=== PATIENT | male | born 1960 | race Caucasian/White ===

== ENCOUNTER 2022-12-03 08:49 | Outpatient (OUT) | payer OTHER, SELFPAY ==
[2022-12-02 08:03] LABS: Basophils Absolute Auto 0.1 10^3/uL (0.0-0.1); Eosinophils Absolute Auto 0.1 10^3/uL (0.0-0.7); Eosinophils Percent Auto 1.6 % (0.9-7.0); Hematocrit 48.2 % (42.0-54.0); Hemoglobin 15.9 g/dL (14.0-18.0); Immature Granulocytes Abs Auto 0.05 10^3/uL (0.00-0.03); Immature Granulocytes Pct Auto 0.7 % (0.0-0.5); Lymphocytes Percent Auto 14.8 % (20.5-60.0); Mean Corpuscular Hemoglobin 29.8 pg (25.9-34.0); Mean Corpuscular Volume 90.4 fL (80.0-94.0); Mean Platelet Volume 10.8 fL (9.5-13.5); Monocytes Absolute Auto 0.5 10^3/uL (0.3-0.8); Monocytes Percent Auto 7.3 % (1.7-12.0); Neutrophils Absolute Auto 5.2 10^3/uL (1.4-6.5); Neutrophils Percent Auto 74.6 % (43.0-75.0); Platelet Count 227 10^3/uL (150-450); Red Blood Count 5.33 10^6/uL (4.70-6.10); Red Cell Distribution Width 14.7 % (11.0-15.0)
[2022-12-02 08:39] LABS: Alanine Aminotransferase 26 U/L (16-63); Albumin Globulin Ratio 1.2; Albumin Level 3.7 g/dL (3.4-5.0); Alkaline Phosphatase 90 U/L (46-116); Anion Gap 12.5; Aspartate Amino Transferase 11 U/L (15-37); BUN Creatinine Ratio 20.8; Bilirubin Total 0.6 mg/dL (0.2-1.0); Calcium 8.6 mg/dL (8.5-10.1); Carbon Dioxide 27.9 mmol/L (21.0-32.0); Chloride 105 mmol/L (98-107); Chol HDL Ratio 5.5; Cholesterol 203 mg/dL (<=200); Estimated GFR (African America >60 (>=60); Estimated GFR (Non-African Ame >60 (>=60); Glucose 110 mg/dL (74-106); HDL Cholesterol 37 mg/dL (40-60); Potassium 4.4 mmol/L (3.5-5.1); Sodium 141 mmol/L (136-145); Total Protein 6.7 g/dL (6.4-8.2); Triglycerides 81 mg/dL (<=150); VLDL CHOLESTEROL 16.2 mg/dL
[2022-12-02 09:10] LABS: Prostate Specific Antigen Scrn 3.07 ng/mL (<=4.00)
== END 2022-12-03 08:50 | disposition home or self-care (01) ==
LOC: LAB 08:49
PROVIDERS: PCP Internal Medicine; Visit Provider Internal Medicine
DX: Z00.00 Encounter for general adult medical examination without abnormal findings (principal); Z12.5 Encounter for screening for malignant neoplasm of prostate
CPT/HCPCS: 36415; 80053; 80061; 85025; G0103

== ENCOUNTER 2022-12-17 15:11 | Outpatient (OUT) | payer OTHER, SELFPAY ==
--- NOTE | 2022-12-17 | ECG_ITS ---
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
== END 2022-12-17 15:12 | disposition home or self-care (01) ==
LOC: CARD 15:12
PROVIDERS: PCP Internal Medicine; Visit Provider Internal Medicine
DX: R00.2 Palpitations (principal)
CPT/HCPCS: 93005

== ENCOUNTER 2022-12-22 14:04 | Outpatient (OUT) | payer OTHER, SELFPAY ==
--- NOTE | 2022-12-22 14:51 | CA_ITS ---
Patient Name GEORGE CASTILLO MR# Age Sex Date Time [id number] 62 M 12/22/2022 14:16 At the Request Of DR Yvon Hall D.O. ECHOCARDIOGRAM REPORT PROCEDURE: CA ECHO DOPPLER COMPLETE INDICATIONS: Persistent atrial fibrillation COMPARISON: None. DESCRIPTION: COMPLETE ECHOCARDIOGRAM Real-time transthoracic echocardiography with 2D, M-mode, spectral and color flow Doppler performed. QUALITY: Technical quality was good. LEFT VENTRICLE: Normal chamber size. Mild concentric left ventricular hypertrophy. LV EF: Global left ventricular systolic function is normal. Calculated left ventricular ejection fraction is 61% DIASTOLIC: Not adequately assessed due to heart rhythm. ATRIAL SEPTUM: Inadequately seen. LEFT ATRIUM: Severe dilatation. RIGHT ATRIUM: Moderate dilatation. RIGHT VENTRICLE: Normal chamber size. Normal right ventricular systolic function. TRICUSPID VALVE: Normal mobility and thickness. No stenosis with mild regurgitation. No evidence of pulmonary hypertension. RVSP 31mmHg MITRAL VALVE: Normal mobility and thickness. No evidence of mitral valve stenosis. There is no mitral annular calcification. Mild mitral regurgitation. AORTIC VALVE: Normal trileaflet appearance. No visible sclerosis. Normal leaflet mobility. No evidence of aortic valve stenosis. Trivial aortic regurgitation. AORTIC ROOT: Mildly dilated. Measuring 4.0cm PULMONIC VALVE: Normal thickness and mobility. No stenosis. No regurgitation. PERICARDIUM: No evidence of pericardial effusion. IVC: Collapses with inspirations. Normal size. CONCLUSION: 1. Global left ventricular systolic function is normal; visually estimated ejection fraction is 60 to 65% 2. The right ventricle is normal in size and systolic function 3. Mildly increased left ventricular wall thickness 4. Biatrial enlargement 5. Mild tricuspid regurgitation 6. Mild mitral regurgitation 7. Aortic root is mildly dilated Adult Echocardiography Procedure Report Left Ventricle LVEDD (3.7 - 5.6 cm): 4.55 cm LVESD (2.2 - 4.0 cm): 3.09 cm LVIVS thickness (0.6 - 1.2 cm): 1.19 cm LVPW thickness (0.5 - 1.0 cm): 1.02 cm e': 0.14 m/s E - e': 7.07 LVOT Max Gradient: 1.80 mm[Hg] LVOT Area (cm2): 0.67 m/s Peak Velocity (LVOT): 0.67 m/s Mean Velocity (LVOT): 0.40 m/s LVOT Diameter 2.21 cm Left Ventricular Ejection Fraction: 61.25 % Left Atrium LA Volume Index (2D A2C): 53.74 ml/m2 Left Atrium Systolic Dimension: 4.00 cm Mitral Valve Mitral Valve E-Wave Peak Velocity: 1.00 m/s Right Ventricle RV Internal Diastolic Dimension: 3.63 cm Aorta AO Root Diam: 4.02 cm Ascending Ao Diam: 3.56 cm Aortic Valve AoV Area (Peak Gustavo): 2.45 cm2, 2.27 cm2 AoV Area (VTI): 2.11 cm2, 2.03 cm2 Peak Velocity(Antegrade Flow): 1.12 m/s, 0.97 m/s Peak Gradient(Antegrade Flow): 5.06 mm[Hg], 3.74 mm[Hg] Mean Velocity(Antegrade Flow): 0.72 m/s, 0.69 m/s Mean Gradient(Antegrade Flow): 2.40 mm[Hg], 2.11 mm[Hg] Velocity Time Integral: 21.76 cm, 19.96 cm Tricuspid Valve Peak Velocity (Regurgitant Flow): 2.57 m/s, 2.03 m/s, 2.65 m/s Pulmonic Valve Peak Velocity: 0.79 m/s Peak Gradient: 2.38 mm[Hg], 2.62 mm[Hg] Right Atrium Right Atrium Systolic Pressure: 75.82 ml, 75.82 ml Dictated by: Gifty Elise M.D. on 12/23/2022 at 12:33 Approved by: Gifty Elise M.D. on 12/23/2022 at 12:36
== END 2022-12-22 14:05 | disposition home or self-care (01) ==
LOC: CARD 14:05
PROVIDERS: PCP Internal Medicine; Visit Provider Internal Medicine
DX: I48.19 Other persistent atrial fibrillation (principal)
CPT/HCPCS: 93306

== ENCOUNTER 2023-01-11 16:54 | Outpatient (OUT) | payer OTHER, SELFPAY | END 2023-01-11 16:55 | disposition home or self-care (01) | LOC: SLEEP 16:55 | PROVIDERS: PCP Internal Medicine; Visit Provider Internal Medicine | DX: G47.33 Obstructive sleep apnea (adult) (pediatric) (principal) | CPT/HCPCS: 95806 ==

== ENCOUNTER 2023-01-28 11:12 | Outpatient (OUT) | payer OTHER, SELFPAY ==
--- NOTE | 2023-01-28 10:45 | NM_ITS ---
Patient Name: GEORGE CASTILLO MR#: [id number] : 1960 Exam Date: 01/28/2023 Ordering Doctor: DR Yvon Hall D.O. RADIOLOGY REPORT PROCEDURE: NM LILLIE PERF SPECT REST STR COMPARISON: None. INDICATIONS: ATRIAL FIBRILLATION TECHNIQUE: Exam Description: Stress/Rest one day protocol gated SPECT Rest Imagin.5 mCi Tc-99m Cardiolite IV on 01/28/2023 Stress Imaging 30.8 mCi Tc-99m Cardiolite IV on 01/28/2023 Exercise Protocol: 0.4 mg Lexiscan given IV Heart Rate (bpm): Rest: 75 Max: 123 PMHR: 76 Blood Pressure: Rest: 118/84 Max: 126/88 Symptoms: Rest and peak stress ECG findings were normal and the exercise portion of the study was normal per attending physician Dr. Armando Hall . For more details please see separate cardiac stress test report. FINDINGS: QUALITY OF STUDY: Good. PERFUSION DEFECT: None. LOCATION: N/A SIZE: N/A. SEVERITY: N/A. TYPE: N/A. WALL MOTION: Normal. LV SIZE: Normal. 108 mL. TID / TCD: None; 0.9 LVEF: Normal. Calculated EF 50%. SUMMARY: Myocardial perfusion imaging study is NORMAL. CONCLUSION: 1. No reversible ischemia 2. Normal exercise test Dictated by: Bal Mckeon MD on 01/29/2023 at 08:06 Approved by: Bal Mckeon MD on 01/29/2023 at 08:07
--- NOTE | 2023-01-28 13:29 | P.STRESS_ITS ---
Stress Test Stress Test Requesting physician: Yvon Hall Procedure: Lexiscan stress test General Information: Reason for Stress Test: [The stress test is being ordered to evaluate a patient with new-onset atrial fibrillation for coronary artery disease.] Cardiac History and Risk Factors: [This is a 62-year-old patient with no personal history of coronary disease with a recent diagnosis of atrial fibrillation. Primary risk factors include hyperlipidemia] Resting 12 - Lead Electrocardiogram: Atrial fibrillation with a ventricular response of 80 bpm. The QRS interval 0.08 with the QT interval is 0.36 all within normal limits. There are small nondiagnostic Q waves inferiorly without chamber enlargement or ST-T wave changes. Stress Test: Protocol: [Lexiscan protocol] Exercise Capacity: [Not applicable] Blood Pressure Response: The patient's heart rate and blood pressure both increased following infusion] Rhythm: [Patient remained in atrial fibrillation without ectopy during infusion] ST - Response: [There was no ST-T wave changes during infusion] Patient Response: [Patient denied chest pain or shortness of breath during infus ion] Interpretation: There was no objective evidence of myocardial ischemia during infusion. Cardiolite was injected with images in interpretation pending
[2023-01-28] MEDS: REGADENOSON 0.4 MG/5 ML SYRINGE IV (13:43)
== END 2023-01-28 11:13 | disposition home or self-care (01) ==
LOC: NM 11:13
PROVIDERS: PCP Internal Medicine; Visit Provider Internal Medicine
DX: I48.91 Unspecified atrial fibrillation (principal)
CPT/HCPCS: 78452; A9500; J2785

== ENCOUNTER 2023-02-11 20:55 | Outpatient (OUT) | payer OTHER, SELFPAY ==
--- OUTSIDE RECORDS SUMMARY | 2023-02-11 20:57 | XMS_ITS | CCD ---
Author Name Unknown Address [address] [place] [address] Organization [facility] Care Team Providers Care [employer] Captain Name Role Phone RAFAEL, DR RODRIGUEZ Attending Unavailable RAFAEL, DR RODRIGUEZ Consulting Unavailable RAFAEL, DR RODRIGUEZ Primary Care Unavailable RAFAEL, DR RODRIGUEZ Admitting Unavailable PRAMOD, DR DEMETRIO [place] Consulting Unavailable RAFAEL, DR RODRIGUEZ Consulting Unavailable RAFAEL, DR RODRIGUEZ Primary Care Unavailable RAFAEL, DR RODRIGUEZ Admitting Unavailable RAFAEL, DR RODRIGUEZ Attending Unavailable RAFAEL, DR RODRIGUEZ Consulting Unavailable RAFAEL, DR RODRIGUEZ Primary Care Unavailable RAFAEL, DR RODRIGUEZ Admitting Unavailable RAFAEL, DR RODRIGUEZ Attending Unavailable PRAMOD, DR DEMETRIO [place] Consulting Unavailable RAFAEL, DR RODRIGUEZ Primary Care Unavailable RAFAEL, DR RODRIGUEZ Admitting Unavailable RAFAEL, DR RODRIGUEZ Attending Unavailable Rafael, Yvon Unavailable Medications Current Medications Medication Drug Class(es) Dates Sig (Normalized) Sig (Original) apixaban 5 mg oral tablet (4 sources) Factor Xa Inhibitor take 1 tablet by mouth every twelve hours Eliquis 5 MG 1 tablet Orally Twice a day Active atorvastatin 40 mg oral tablet (4 sources) HMG-CoA Reductase Inhibitor Start: 12-27-2022 take 1 tablet by mouth every twenty-four hours Atorvastatin Calcium 40 MG 1 tablet Orally Once a day for 30 days Dec, Active paxlovid (300/100) 20 x 150 mg & 10 x 100mg tablet therapy pack (1 source) Start: 01-01-2023 Paxlovid (300/100) 20 x 150 MG & 10 x 100MG as directed Orally bid for 5 days Dec, Active {20 (nirmatrelvir 150 MG Oral Tablet) / 10 (ritonavir 100 MG Oral Tablet) } Pack [Paxlovid 5-Day] (2 sources) Start: 01-01-2023 Paxlovid (300/100) 20 x 150 MG & 10 x 100MG as directed Orally bid for 5 days Dec, Active Completed/Discontinued Medications Medication Drug Class(es) Dates Sig (Normalized) Sig (Original) citric acid 75 mg/ml / magnesium oxide 21.9 mg/ml / picosulfate sodium 0.0625 mg/ml oral solution (10 sources) Calculi Dissolution Agent, Anti-coagulant Start: 11-15-2018 take 160 mL by mouth in the evening, then take 160 mL by mouth twice daily in the evening Clenpiq 10-3.5-12 MG-GM -GM/160ML 160 ML AT 3:00 PM AND 160 ML AT 9:00 PM Orally TWICE A DAY for 1 days PLEASE CHECK ALLERGIES Nov, Not-Taking/PRN etodolac 400 mg oral tablet (10 sources) Nonsteroidal Anti-inflammatory Drug Start: 01-22-2022 take 1 tablet by mouth twice daily as needed Etodolac 400mg etodolac 400mg, 1 (one) tablet tablet two times daily # 60, 01/22/2022, No Refill. Active oral two times daily for 0 *Pick strength-form from [employer] for [employer]* Jan, Not-Taking/PRN triamcinolone acetonide 40 mg/ml injectable suspension (10 sources) Corticosteroid Start: 09-18-2022 Kenalog-40 Sep, 60 mg Problems Active Problems Problem Classification Problem Date Documented Date Episodic/Chronic Biliary tract disease (2 sources) Cholelithiasis AND cholecystitis without obstruction; Translations: [Calculus of gallbladder with chronic cholecystitis without obstruction] Episodic Cardiac dysrhythmias (7 sources) Persistent atrial fibrillation; Translations: [Other persistent atrial fibrillation] Chronic Cardiac dysrhythmias (11 sources) Palpitations; Translations: [Palpitations] Episodic Diabetes mellitus without complication (10 sources) Hyperglycemia; Translations: [Hyperglycemia, unspecified] Episodic Disorders of lipid metabolism (13 sources) Pure hypercholesterolemia; Translations: [Pure hypercholesterolemia, unspecified] Chronic Hyperplasia of prostate (13 sources) Benign prostatic hypertrophy without outflow obstruction; Translations: [Hypertrophy (benign) of prostate without urinary obstruction and other lower urinary tract symptoms [LUTS]] Chronic Inflammatory conditions of male genital organs (2 sources) Balanitis; Translations: [Balanitis] Onset: 07-25-2014 Chronic Inflammatory conditions of male genital organs (2 sources) Orchitis and epididymitis; Translations: [Epididymo-orchitis] Episodic Miscellaneous mental health disorders (2 sources) Psychosexual dysfunction associated with inhibited sexual excitement; Translations: [Psychosexual dysfunction with inhibited sexual excitement] Onset: 03-11-2016 Chronic Nonspecific chest pain (2 sources) Chest pain; Translations: [Chest pain, unspecified] Episodic Osteoarthritis (2 sources) Localized, primary osteoarthritis of the pelvic region and thigh; Translations: [Unilateral primary osteoarthritis, right hip] Chronic Other connective tissue disease (10 sources) Cramp in lower leg associated with rest; Translations: [Sleep related leg cramps] Chronic Other connective tissue disease (1 source) Sleep related leg cramps Chronic Other connective tissue disease (2 sources) Other symptoms and signs involving the nervous system Episodic Other male genital disorders (2 sources) Impotence of organic origin; Translations: [Impotence of organic origin] Chronic Other non-traumatic joint disorders (2 sources) Pain in right hip joint; Translations: [Pain in right hip] Episodic Other non-traumatic joint disorders (8 sources) Arthralgia of the pelvic region and thigh; Translations: [Pain in right hip] Episodic Other nutritional; endocrine; and metabolic disorders (4 sources) Obese class I; Translations: [Body mass index 33.0-33.9, adult] Onset: 03-11-2016 Chronic Other nutritional; endocrine; and metabolic disorders (2 sources) Simple obesity ; Translations: [Other obesity due to excess calories] Onset: 03-11-2016 Chronic Other nutritional; endocrine; and metabolic disorders (2 sources) Obesity; Translations: [Obesity, unspecified] Chronic Other nutritional; endocrine; and metabolic disorders (4 sources) Body mass index 30+ - obesity; Translations: [Body mass index (BMI) 31.0-31.9, adult] Chronic Other nutritional; endocrine; and metabolic disorders (4 sources) Obesity caused by energy imbalance; Translations: [Other obesity due to excess calories] Chronic Other nutritional; endocrine; and metabolic disorders (2 sources) Other obesity due to excess calories Chronic Other nutritional; endocrine; and metabolic disorders (2 sources) Body mass index (BMI) 31.0-31.9, adult Chronic Other screening for suspected conditions (not mental disorders or infectious disease) (4 sources) Encounter for screening for malignant neoplasm of prostate; Translations: [Encounter for screening for diseases of the blood and blood-forming organs and certain disorders involving the immune mechanism] Onset: 10-11-2018 Episodic Other upper respiratory disease (2 sources) Allergic rhinitis; Translations: [Allergic rhinitis, unspecified] Chronic Other upper respiratory disease (2 sources) Allergic rhinitis due to pollen; Translations: [Allergic rhinitis due to pollen] Chronic Other upper respiratory disease (12 sources) Seasonal allergic rhinitis; Translations: [Other seasonal allergic rhinitis] Onset: 10-13-2016 Chronic Other upper respiratory disease (1 source) Other seasonal allergic rhinitis Chronic Other upper respiratory infections (4 sources) Acute maxillary sinusitis; Translations: [Acute maxillary sinusitis, unspecified] Onset: 05-13-2016 Episodic Residual codes; unclassified (2 sources) Obstructive sleep apnea syndrome; Translations: [Obstructive sleep apnea (adult) (pediatric)] Chronic Residual codes; unclassified (1 source) Obstructive sleep apnea (adult) (pediatric) Chronic Spondylosis; intervertebral disc disorders; other back problems (17 sources) Spondylosis without myelopathy or radiculopathy, lumbar region; Translations: [Lumbosacral spondylosis without myelopathy] Onset: 04-04-2018 Chronic Sprains and strains (14 sources) Injury of superior glenoid labrum of shoulder joint; Translations: [Superior glenoid labrum lesion of left shoulder, subsequent encounter] Onset: 03-11-2016 Episodic Superficial injury; contusion (8 sources) Contusion of right hip, subsequent encounter; Translations: [Contusion of right shoulder] Onset: 01-06-2022 Resolved: 01-19-2020 Episodic Urinary tract infections (2 sources) Urethritis; Translations: [Other urethritis] Episodic Past or Other Problems Problem Classification Problem Date Documented Da te Episodic/Chronic Bacterial infection; unspecified site (2 sources) Bacterial infectious disease; Translations: [Bacterial infection, unspecified, in conditions classified elsewhere and of unspecified site] Onset: 05-13-2016 Episodic Blindness and vision defects (2 sources) Transient visual loss; Translations: [Transient visual loss, unspecified eye] Onset: 07-25-2014 Episodic Conditions associated with dizziness or vertigo (2 sources) Benign paroxysmal positional vertigo; Translations: [Benign paroxysmal vertigo, unspecified ear] Onset: 11-06-2014 Episodic Malaise and fatigue (2 sources) Malaise and fatigue; Translations: [Other malaise and fatigue] Onset: 10-11-2018 Episodic Other connective tissue disease (2 sources) Nontraumatic rupture of rotator cuff of left shoulder; Translations: [Unspecified rotator cuff tear or rupture of left shoulder, not specified as traumatic] Onset: 03-11-2016 Episodic Other connective tissue disease (2 sources) Disorder of synovium; Translations: [Unspecified disorder of synovium, tendon, and bursa] Onset: 03-11-2016 Episodic Other non-traumatic joint disorders (4 sources) Shoulder joint pain; Translations: [Pain in left shoulder] Onset: 03-11-2016 Episodic Unclassified (5 sources) Other persistent atrial fibrillation Viral infection (3 sources) Disease caused by 2019-nCoV; Translations: [COVID-19] Results Test Name Value Interpretation Reference Range Facility MRI Lumbar Spine w/oon 03-10 MRI Lumbar Spine w/o HISTORY: Low back pain radiating to right leg. TECHNIQUE: Routine lumbosacral spine MR protocol without gadolinium. Contrast: None. COMPARISON: None. RESULT: Counting reference: Lumbosacral junction. For the purposes of this report, L5-S1 is considered the last well-formed disc space. Alignment: Grade 1 anterolisthesis of L5 on S1 measuring around 3 mm. Bone marrow signal/fracture: No evidence for recent fracture. No marrow replacing process. Areas of endplate degenerative signal. Schmorl's node superior endplate of L2. Conus: The conus is within normal limits of signal intensity and morphology. Paraspinal soft tissues: Paraspinal soft tissues are unremarkable. Lower thoracic spine: Visualized lower thoracic canal and foramina are without significant narrowing. T12-L1: No significant canal or foraminal narrowing. L1-L2: Tiny disc bulge. No significant canal or foraminal narrowing. L2-L3: Tiny disc bulge. Endplate osteophytes. Facet degenerative changes. No significant canal or foraminal narrowing. L3-L4: Tiny disc bulge. Endplate osteophytes. Facet degenerative changes. Ligamentous hypertrophy. Mild bilateral foraminal narrowing without sniffing canal narrowing. L4-L5: Broad-based disc bulge. Endplate osteophytes. Facet degenerative changes. Ligamentous hypertrophy. Mild bilateral foraminal narrowing without significant canal narrowing. L5-S1: Anterolisthesis with disc uncovering. No significant canal or foraminal narrowing. Sacrum and iliac wings: The visualized sacrum and iliac wings are within normal limits. The presacral soft tissues are normal in appearance. IMPRESSION: Degenerative changes lumbar spine as discussed. Report reported and signed by Farooq Johnson on 03/11/2022 1208 Normal [facility] [employer] XR LSPINE W_OBLS AND FLEX_EX Ton 01-27-2022 XR LSPINE W_OBLS AND FLEX_EXT EXAMINATION: XR LSPINE W_OBLS AND FLEX_EXT HISTORY: Spondylosis without myelopathy COMPARISON: No relevant comparison available. FINDINGS: BONES: Normal alignment on neutral projection with no acute fracture or spondylolisthesis. Mild to moderate diffuse degenerative spondylosis and facet osteoarthropathy DISC SPACES: Mild multilevel disc space narrowing PARASPINOUS: Negative. No paraspinous abnormality is seen. OTHER: No transient spondylolisthesis with flexion or extension IMPRESSION: Mild to moderate degenerative changes with no dynamic instability Electronically authenticated by: DEMETRIO BENAVIDEZ Date: 2022-01-27 07:10 Normal [facility] CBC AUTO DIFFon 12-01-2021 BASO # 0.0 103/ul Normal 0.0-0.1 [facility] Comment on above: Performed By: #### C BC #### [facility] [address] [address] [address] Derrek Miramontes Basophils/100 WBC (Bld) 0.7 % Normal 0.2-2.0 [facility] Comment on above: Performed By: #### C BC #### [facility] [address] [address] [address] Derrek Miramontes EO # 0.1 103/ul Normal 0.0-0.7 [facility] Comment on above: Performed By: #### C BC #### [facility] [address] [address] [address] Derrek Miramontes Eosinophils/100 WBC (Bld) 2.0 % Normal 0.9-7.0 [facility] Comment on above: Performed By: #### C BC #### [facility] [address] [place] [address] Dr. Derrek Miramontes Erythrocyte distribution width (RBC) [Ratio] 14.2 % Normal 11.0-15.0 [facility] Comment on above: Performed By: #### C BC #### [facility] [address] [address] [address] Derrek Miramontes Hematocrit (Bld) [Volume fraction] 46.7 % Normal 42.0-54.0 [facility] Comment on above: Performed By: #### C BC #### [facility] [address] [address] [address] Derrek Miramontes Hemoglobin (Bld) [Mass/Vol] 15.3 g/dL Normal 14.0-18.0 [facility] Comment on above: Performed By: #### C BC #### [facility] [address] [place] [address] Dr. Derrek Miramontes IG # 0.07 10e3/ul Critically high 0.00-0.03 [facility] Comment on above: Performed By: #### C BC #### [facility] [address] [place] [address] Dr. Derrek Miramontes IG % 1.2 % Critically high 0.0-0.5 [facility] Comment on above: Performed By: #### C BC #### [facility] [address] [place] [address] Dr. Derrek Miramontes LYMPH # 1.0 103/ul Critically low 1.2-3.8 [facility] Comment on above: Performed By: #### C BC #### [facility] [address] [place] [address] Dr. Derrek Miramontes Lymphocytes/100 WBC (Bld) 16.3 % Critically low 20.5-60.0 [facility] Comment on above: Performed By: #### C BC #### [facility] [address] [place] [address] Dr. Derrek Miramontes MANUAL DIFF REQ NO Normal [facility] Comment on above: Performed By: #### C BC #### [facility] [address] [place] [address] Dr. Derrek Miramontes MCH (RBC) [Entitic mass] 29.5 pg Normal 25.9-34.0 [facility] Comment on above: Performed By: #### C BC #### [facility] [address] [place] [address] Dr. Derrek Miramontes MCHC (RBC) [Mass/Vol] 32.8 g/dL Normal 29.9-35.2 [facility] Comment on above: Performed By: #### C BC #### [facility] [address] [address] [address] Derrek Miramontes MCV (RBC) [Entitic vol] 90.2 fL Normal 80.0-94.0 [facility] Comment on above: Performed By: #### C BC #### [facility] [address] [place] [address] Dr. Derrek Miramontes MONO # 0.4 103/ul Normal 0.3-0.8 [facility] Comment on above: Performed By: #### C BC #### [facility] [address] [place] [address] Dr. Derrek Miramontes Monocytes/100 WBC (Bld) 7.1 % Normal 1.7-12.0 [facility] Comment on above: Performed By: #### C BC #### [facility] [address] [place] [address] Dr. Derrek Miramontes NEUT # 4.3 103/ul Normal 1.4-6.5 [facility] Comment on above: Performed By: #### C BC #### [facility] [address] [place] [address] Dr. Derrek Miramontes Neutrophils/100 WBC (Bld) 72.7 % Normal 43.0-75.0 [facility] Comment on above: Performed By: #### C BC #### [facility] [address] [place] [address] Dr. Derrek Miramontes Platelet mean volume (Bld) [Entitic vol] 10.0 fL Normal 9.5-13.5 [facility] Comment on above: Performed By: #### C BC #### [facility] [address] [place] [address] Dr. Derrek Miramontes PLT 186 103/ul Normal 150-450 [facility] Comment on above: Performed By: #### C BC #### [facility] [address] [address] [address] Derrek Miramontes RBC 5.18 106/ul Normal 4.70-6.10 [facility] Comment on above: Performed By: #### C BC #### [facility] [address] [address] [address] Derrek Miramontes WBC 5.9 103/ul Normal 4.0-11.0 [facility] Comment on above: Performed By: #### C BC #### [facility] [address] [address] [address] Derrek Miramontes LIPID PROFILEon 12-01-2021 CHOL-HDL RATIO NORM SEE BELOW Normal [facility] Comment on above: Result Comment: 3.3 - 4.4 LOW RISK 4.4 - 7.1 AVERAGE RISK 7.1 - 11.0 MODERATE RISK >11.0 HIGH RISK Performed By: #### C MP, LIPID #### [facility] [address] [place] [address] Dr. Derrek Miramontes Cholesterol [Mass/Vol] 198 mg/dL Normal <=200 [facility] Comment on above: Performed By: #### C MP, LIPID #### [facility] [address] [place] [address] Dr. Derrek Miramontes Cholesterol in HDL [Mass/Vol] 44 mg/dL Normal 40-60 [facility] Comment on above: Performed By: #### C MP, LIPID #### [facility] [address] [address] [address] Derrek Miramontes Cholesterol in LDL [Mass/Vol] 140.6 mg/dL Normal [facility] Comment on above: Performed By: #### C MP, LIPID #### [facility] [address] [place] [address] Dr. Derrek Miramontes Cholesterol.total/ Cholesterol in HDL [Mass ratio] 4.5 {ratio} Normal [facility] Comment on above: Performed By: #### C MP, LIPID #### [facility] [address] [place] [address] Dr. Derrek Miramontes HDL NORMAL > or = 60 mg/dl - LO W CARDIOVASCULAR RISK <40 mg/dl - HIGH CARDIOVASCULAR RISK Normal [facility] Comment on above: Performed By: #### C MP, LIPID #### [facility] [address] [address] [address] Derrek Miramontes LDL CALC NORMAL SEE BELOW Normal [facility] Comment on above: Result Comment: <100 mg/dl OPTIMAL 100 - 129 mg/dl NEAR OR ABOVE OPTIMAL 130 - 159 mg/dl BORDERLINE HIGH 160 - 189 mg/dl HIGH >190 mg/dl VERY HIGH Performed By: #### C MP, LIPID #### [facility] [address] [place] [address] Dr. Derrek Miramontes Triglyceride [Mass/Vol] 67 mg/dL Normal <=150 [facility] Comment on above: Performed By: #### C MP, LIPID #### [facility] [address] [place] [address] Dr. Derrek Miramontes VLDL CALC 13.4 mg/dL Normal [facility] Comment on above: Performed By: #### C MP, LIPID #### [facility] [address] [place] [address] Dr. Derrek Miramontes PROF 14(COMP METB)on 022 Albumin [Mass/Vol] 3.8 g/dL Normal 3.4-5.0 [facility] Comment on above: Performed By: #### C MP, LIPID #### [facility] [address] [place] [address] Dr. Derrek Miramontes Albumin/Globulin [Mass ratio] 1.4 {ratio} Normal [facility] Comment on above: Performed By: #### C MP, LIPID #### [facility] [address] [place] [address] Dr. Derrek Miramontes ALP [Catalytic activity/Vol] 79 U/L Normal 46-116 [facility] Comment on above: Performed By: #### C MP, LIPID #### [facility] [address] [place] [address] Dr. Derrek Miramontes ALT [Catalytic activity/Vol] 28 U/L Normal 16-63 [facility] Comment on above: Performed By: #### C MP, LIPID #### [facility] [address] [place] [address] Dr. Derrek Miramontes Anion gap [Moles/Vol] 7.2 mmol/L Normal [facility] Comment on above: Performed By: #### C MP, LIPID #### [facility] [address] [place] [address] Dr. Derrek Miramontes AST [Catalytic activity/Vol] 11 U/L Critically low 15-37 [facility] Comment on above: Performed By: #### C MP, LIPID #### [facility] [address] [place] [address] Dr. Derrek Miramontes Bilirubin [Mass/Vol] 0.5 mg/dL Normal 0.2-1.0 [facility] Comment on above: Performed By: #### C MP, LIPID #### [facility] [address] [place] [address] Dr. Derrek Miramontes Calcium [Mass/Vol] 8.8 mg/dL Normal 8.5-10.1 [facility] Comment on above: Performed By: #### C MP, LIPID #### [facility] [address] [place] [address] Dr. Derrek Miramontes Chloride [Moles/Vol] 104 mmol/L Normal 98-107 [facility] Comment on above: Performed By: #### C MP, LIPID #### [facility] [address] [place] [address] Dr. Derrek Miramontes CO2 [Moles/Vol] 34.1 mmol/L Critically high 21.0-32.0 [facility] Comment on above: Performed By: #### C MP, LIPID #### [facility] [address] [place] [address] Dr. Derrek Miramontes Creatinine [Mass/Vol] 0.91 mg/dL Normal 0.70-1.30 [facility] Comment on above: Performed By: #### C MP, LIPID #### [facility] [address] [place] [address] Dr. Derrek Miramontes EGFR-AF [place] >60 Normal >=60 [facility] Comment on above: Performed By: #### C MP, LIPID #### [facility] [address] [place] [address] Dr. Derrek Miramontes EGFR-NON AF [place] >60 Normal >=60 [facility] Comment on above: Performed By: #### C MP, LIPID #### [facility] [address] [address] [address] Derrek Miramontes Globulin (S) [Mass/Vol] 2.8 g/dL Normal [facility] Comment on above: Performed By: #### C MP, LIPID #### [facility] [address] [address] [address] Derrek Miramontes Glucose [Mass/Vol] 113 mg/dL Critically high 74-[address] [facility] Comment on above: Performed By: #### C MP, LIPID #### [facility] [address] [place] [address] Dr. Derrek Miramontes Potassium [Moles/Vol] 4.3 mmol/L Normal 3.5-5.1 [facility] Comment on above: Performed By: #### C MP, LIPID #### [facility] [address] [address] [address] Derrek Miramontes Protein [Mass/Vol] 6.6 g/dL Normal 6.4-8.2 [facility] Comment on above: Performed By: #### C MP, LIPID #### [facility] [address] [place] [address] Dr. Derrek Miramontes Sodium [Moles/Vol] 141 mmol/L Normal 136-145 [facility] Comment on above: Performed By: #### C MP, LIPID #### [facility] [facility] [address] [place] [address] Dr. Derrek Miramontes Urea nitrogen [Mass/Vol] 18.0 mg/dL Normal 7.0-18.0 [facility] Comment on above: Performed By: #### C MP, LIPID #### [facility] [address] [place] [address] Dr. Derrek Miramontes Urea nitrogen/Creatinin e [Mass ratio] 19.8 mg/mg Normal [facility] Comment on above: Performed By: #### C MP, LIPID #### [facility] [address] [place] [address] Dr. Derrek Miramontes Ambulatory Clinical Summaryo n 10-30-2020 Ambulatory Clinical Summary {[id number] Normal [facility] General Surgery Office/Clini c Noteon 10-30-2020 General Surgery Office/Clinic Note HPI Staff Lap choly 10/09/20 21 days p/o, no concerns History of Present Illness 3 weeks s/p LS cholecystectomy; doing well; denies pain, no N/V; some loose stools with fatty foods. Review of Systems ROS - Provider Constitutional: no fever, no sweats, no weight loss. Eyes: no glasses, no blurred vision, no visual loss. ENMT: no dentures, no hoarseness, no swallowing difficulties, no hearing loss, no ear infection(s), no nose bleeds. Cardiovascular: normal blood pressure, no chest pain, regular heartbeat, no heart murmur. Respiratory: no shortness of breath, no cough, no asthma, no wheezing. Gastrointestinal: no nausea, no vomiting, no diarrhea, no constipation, no blood in stool, no change in bowel habits, no abdominal pain, no hepatitis. Genitourinary: no kidney stones, no urine infection, no dysuria. Musculoskeletal: no pain, no weakness. Skin: no changing moles, no rash, no skin lumps. Neurologic: no seizures, no epilepsy, no headache. Psychiatric: no emotional or psychiatric problem. Heme/Lymph: no bleeding problems, no anemia, no blood clots, no transfusions. Allergy/Immunologic: no swollen lymph nodes/glands, no IV drug abuse. Other: Additional ROS info: Except as noted in the above Review of Systems and in the History of Present Illness, all other systems have been reviewed and are negative or noncontributory. Physical Exam Vitals & Measurements T: 36.4 ?C (Tympanic) abd: obese, soft, normal bs, incisions without erythema or drainage, no ecchymoses. Assessment/Plan 1. Calculus of gallbladder with chronic cholecystitis without obstruction (K80.10: Calculus of gallbladder with chronic cholecystitis without obstruction) doing well, continue no lifting for 1 week then gradually resume regular activities; return to work 11/11/20 without restrictions; call with problems/questions. Follow-up No qualifying data available Problem List/Past Medical History Ongoing BMI 31.0-31.9,adult BPH associated with nocturia Calculus of gallbladder with chronic cholecystitis without obstruction Obesity Palpitations Symptomatic cholelithiasis Historical Benign prostatic hyperplasia Procedure/Surgical History Laparoscopic cholecystectomy (10/09/2020), Tonsil (1982), Repair umbilical hernia, age 5 years or older; reducible. Medications No active medications Allergies No Known Allergies Social History Alcohol - Low Risk, 09/10/2020 Substance Abuse - Denies Substance Abuse, 09/10/2020 Tobacco - Denies Tobacco Use, 09/09/2020 Never (less than 100 in lifetime) Tobacco Use:., 09/10/2020 Family History HTN: Father. Normal [facility] Comment on above: Result Comment: Elec tronically Signed By: NEIL BLAKE, Slava Smith.br\Date and Time Signed: 10/30/20 13:18 EDT Provider Letteron 10-30-2020 Provider Letter October 30, 2020 To Whom It May Concern, Patient may return to work on 11/11/20 May Return to Work On:11/11/2020 Restrictions: None Comments: any questions please call the office Sincerely, Dr Slava Bourgeois [facility] Ambulatory Clinical Summaryo n 10-16-2020 Ambulatory Clinical Summary {[id number] [facility] General Surgery Office/Clini c Noteon 10-16-2020 General Surgery Office/Clinic Note HPI Staff Lap Choly 10/09/20 7 days p/o doing well History of Present Illness 1 week s/p LS cholecystectomy, doing well, mild soreness; no N/V; no fevers, no drainage from incisions; not taking any pain meds; normal bms. pathology with chronic calculus cholecystitis. Review of Systems ROS - Provider Constitutional: no fever, no sweats, no weight loss. Eyes: no glasses, no blurred vision, no visual loss. ENMT: no dentures, no hoarseness, no swallowing difficulties, no hearing loss, no ear infection(s), no nose bleeds. Cardiovascular: normal blood pressure, no chest pain, regular heartbeat, no heart murmur. Respiratory: no shortness of breath, no cough, no asthma, no wheezing. Gastrointestinal: no nausea, no vomiting, no diarrhea, no constipation, no blood in stool, no change in bowel habits, mild abdominal pain, no hepatitis. Genitourinary: no kidney stones, no urine infection, no dysuria. Musculoskeletal: no pain, no weakness. Skin: no changing moles, no rash, no skin lumps. Neurologic: no seizures, no epilepsy, no headache. Psychiatric: no emotional or psychiatric problem. Heme/Lymph: no bleeding problems, no anemia, no blood clots, no transfusions. Allergy/Immunologic: no swollen lymph nodes/glands, no IV drug abuse. Other: Additional ROS info: Except as noted in the above Review of Systems and in the History of Present Illness, all other systems have been reviewed and are negative or noncontributory. Physical Exam Vitals & Measurements T: 36.4 ?C (Tympanic) abd: soft, normal bs, nondistended; incisions without erythema or drainage, minimal resolving ecchymoses. Assessment/Plan 1. Calculus of gallbladder with chronic cholecystitis without obstruction (K80.10: Calculus of gallbladder with chronic cholecystitis without obstruction) doing well, continue no lifting > 10 lbs for 3 weeks, likely return to work in 3 weeks; follow up with me in 2 weeks, call sooner if problems/questions. Follow-up No qualifying data available Problem List/Past Medical History Ongoing BMI 31.0-31.9,adult BPH associated with nocturia Calculus of gallbladder with chronic cholecystitis without obstruction Obesity Palpitations Symptomatic cholelithiasis Historical Benign prostatic hyperplasia Procedure/Surgical History Laparoscopic cholecystectomy (10/09/2020), Tonsil (1982), Repair umbilical hernia, age 5 years or older; reducible. Medications No active medications Allergies No Known Allergies Social History Alcohol - Low Risk, 09/10/2020 Substance Abuse - Denies Substance Abuse, 09/10/2020 Tobacco - Denies Tobacco Use, 09/09/2020 Never (less than 100 in lifetime) Tobacco Use:., 09/10/2020 Family History HTN: Father. Normal [facility] Comment on above: Result Comment: Elec tronically Signed By: NEIL BLAKE, Slava R\.br\Date and Time Signed: 10/16/20 17:28 EDT Provider Letteron 10-16-2020 Provider Letter October 16, 2020 GEORGE CASTILLO [address] [place] [address] GEORGE CASTILLO 1960 To Whom It May Concern, Please excuse above patient from work. 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 [facility] Operative Reporton Operative Report [id number] 0CD:127 [facility] Pathology Noteon 10-11-2020 Pathology Note [id number] 00CD:127 [facility] Lab Reportson 10-07-2020 Lab Reports [id number] 0CD:127 [facility] September 18, 2020 YVON THOMPSON, [address] [facility], [place] [address] Re: GEORGE CASTILLO Date of : 1960 Thank you for your referral of George Castillo who was seen on consultation on September 10, 2020, for cholelithiasis. I have enclosed my consultation note for your review. I will be happy to follow George. Sincerely, Slava Bourgeois MD General Surgery [facility] Consent for Procedure/Surger yon 09-12-2020 Consent for Procedure/Surgery [id number] 0CD:127 Normal [facility] Ambulatory Clinical Summaryo n 09-10-2020 Ambulatory Clinical Summary {[id number] Normal [facility] General Surgery Office/Clini c Noteon 09-10-2020 General Surgery Office/Clinic Note HPI Staff New pt., ref by Dr. Thompson for cholelithiasis . Pt was in [place] [facility] in 06/2020 ct abd/pelvis , u/s RUQ done 5 episodes over 1.5 yrs History of Present Illness 60 yo male with h/o bph, referred for symptomatic cholelithiasis; most recent episode, 06/2020, seen in ED for sharp RUQ pain that began several hours after eating burgers; some nausea; work up in ED revealed large gallstone on abd ct; US revealed large stone; normal cbd, no wall thickening; only abdominal operation umbilical hernia repair with mesh; no h/o jaundice or pancreatitis; no asa or NSAID use; no tobacco use; no fmhx of GI malignancy or IBD. Review of Systems PHQ Score Initial Depression Screen Score: 0 ROS - Provider Constitutional: no fever, no sweats, no weight loss. Eyes: no glasses, no blurred vision, no visual loss. ENMT: no dentures, no hoarseness, no swallowing difficulties, no hearing loss, no ear infection(s), no nose bleeds. Cardiovascular: normal blood pressure, no chest pain, regular heartbeat, no heart murmur. Respiratory: no shortness of breath, no cough, no asthma, no wheezing. Gastrointestinal: yes nausea, yes vomiting, no diarrhea, no constipation, no blood in stool, no change in bowel habits, moderate abdominal pain, no hepatitis. Genitourinary: no kidney stones, no urine infection, no dysuria. Musculoskeletal: no pain, no weakness. Skin: no changing moles, no rash, no skin lumps. Neurologic: no seizures, no epilepsy, no headache. Psychiatric: no emotional or psychiatric problem. Heme/Lymph: no bleeding problems, no anemia, no blood clots, no transfusions. Allergy/Immunologic: no swollen lymph nodes/glands, no IV drug abuse. Other: Additional ROS info: Except as noted in the above Review of Systems and in the History of Present Illness, all other systems have been reviewed and are negative or noncontributory. Physical Exam Vitals & Measurements T: 37.0 ?C (Temporal Artery) HR: 80(Peripheral) RR: 14 BP: 110/70 SpO2: 97% HT: 185.4 cm HT: 185.42 cm WT: 109.7 kg WT: 109.7 kg BMI: 31.91 HEENT: normal conjunctiva, sclera clear, no scleral icterus, EOM intact, PERRLA, oral mucosa moist without lesions. Neck: trachea midline, no mass, symmetric, no thyromegaly or nodules, no adenopathy Respiratory: lungs CTA, respirations non labored. Cardiovascular: regular rate and rhythm, no murmur, no pedal edema or varicosities. Gastrointestinal: soft, non distended, no tenderness, no masses, no palpable hernias, diastasis recti no, no hepatosplenomegaly; normal bs Lymphatic: no cervical adenopathy, no axillary adenopathy, no inguinal adenopathy. Musculoskeletal: normal gait, digits and nails without infection, nodes, cyanosis, clubbing. Skin: no rashes, no lesions, no ulcers, no subcutaneous nodules, induration. Psychiatric/Neuro: oriented to time, place, person, judgement normal, affect appropriate for age, insight intact, no focal deficits. Tests: labs reviewed, x-rays reviewed, review of old records completed, _ surgical options, risks, and possible complications with patient. Assessment/Plan 1. Symptomatic cholelithiasis (K80.20: Calculus of gallbladder without cholecystitis without obstruction) plan laparoscopic cholecystectomy with possible intraoperative cholangiogram, informed consent obtained; Unasyn 3 gms IV prior to OR SCDs low fat diet for now. 2. BMI 31.0-31.9,adult (Z68.31: Body mass index [BMI] 31.0-31.9, adult) recommend diet and exercise. Follow-up No qualifying data available Problem List/Past Medical History Ongoing BMI 31.0-31.9,adult BPH associated with nocturia Calculus of gallbladder with chronic cholecystitis without obstruction Obesity Palpitations Symptomatic cholelithiasis Historical Benign prostatic hyperplasia Procedure/Surgical History Tonsil (1982), Repair umbilical hernia, age 5 years or older; reducible. Medications No active medications Allergies No Known Allergies Social History Alcohol - Low Risk, 09/10/2020 Substance Abuse - Denies Substance Abuse, 09/10/2020 Tobacco - Denies Tobacco Use, 09/09/2020 Never (less than 100 in lifetime) Tobacco Use:., 09/10/2020 Family History HTN: Father. [facility] Comment on above: Result Comment: Elec tronically Signed By: NEIL BLAKE, Slava Lynn\.br\Date and Time Signed: 09/10/20 16:56 EDT Provider Letteron 09-10-2020 Provider Letter September 10, 2020 GEORGE CASTILLO [address] [place] [address] GEORGE CASTILLO 1960 To Whom It May Concern, Please excuse above patient from work. Date of Illness/appointment From: 09/10/20 May Return to Work On: pt was in our office for an appointment today Sincerely, Dr Slava Bourgeois [facility] Physician Referralon 021 Physician Referral [id number] 0CD:127 [facility] Physician Referral [id number] CD:127 [facility] Vital Signs Date Time Vital Sign Value Performing Clinician Facility 12-25-2022 09:00-0500 Body height 184.15 cm [facility] Other [facility] Other 12-25-2022 09:00-0500 Body mass index (BMI) [Ratio] 31.3 kg/m2 [facility] Other [facility] Other 12-25-2022 09:00-0500 Body weight 106.14 kg [facility] Other [facility] Other 12-25-2022 09:00-0500 Diastolic blood pressure 89 mm[Hg] [facility] Other [facility] Other 12-25-2022 09:00-0500 Respiratory rate 12 /min Yvon Ball Other [facility] Other 12-25-2022 09:00-0500 Systolic blood pressure 127 mm[Hg] Yvon Ball Other [facility] Other 12-07-2022 14:30-0400 Body height 184.15 cm Yvon Ball Other [facility] Other 12-07-2022 14:30-0400 Body mass index (BMI) [Ratio] 31.3 kg/m2 Yvon Ball Other [facility] Other 12-07-2022 14:30-0400 Body weight 106.14 kg Yvon Ball Other [facility] Other 12-07-2022 14:30-0400 Diastolic blood pressure 80 mm[Hg] Yvon Ball Other [facility] Other 12-07-2022 14:30-0400 Respiratory rate 12 /min Yvon Ball Other [facility] Other 12-07-2022 14:30-0400 Systolic blood pressure 125 mm[Hg] Yvon Ball Other [facility] Other Encounters Encounter Date Encounter Type Care Provider Facility Start: 01-13-2023 End: 01-13-2023 ambulatory Yvon Ball Other [facility] Other Start: 01-13-2023 Telephone encounter Yvon [facility] Start: 01-01-2023 End: 01-01-2023 ambulatory Yvon Ball Other [facility] Other Start: 01-01-2023 Office outpatient vi sit 15 minutes Yvon Ball [facility] Start: 12-25-2022 End: 12-25-2022 ambulatory Yvon Ball Other [facility] Other Start: 12-25-2022 Office outpatient vi sit 25 minutes Yvon Ball [facility] Start: 12-23-2022 End: 12-23-2022 ambulatory Yvon Ball Other [facility] Other Start: 12-23-2022 Telephone encounter Yvon Ball [facility] Start: 12-18-2022 End: 12-18-2022 ambulatory Yvon Ball Other [facility] Other Start: 12-18-2022 Telephone encounter Yvon Thompson [facility] Start: 12-17-2022 End: 12-17-2022 ambulatory Yvon Ball Other [facility] Other Start: 12-17-2022 Telephone encounter Yvon Thompson [facility] Start: 12-07-2022 End: 12-07-2022 ambulatory Yvon Ball Other [facility] Other Start: 12-07-2022 Encounter for genera l adult medical examination without abnormal findings Yvon Ball [facility] Start: 12-07-2022 Periodic preventive med est patient 40-64yrs Yvon Ball [facility] Start: 11-13-2022 End: 11-13-2022 ambulatory Yvon Ball Other [facility] Other Start: 11-13-2022 Encounter for genera l adult medical examination without abnormal findings Yvon Ball [facility] Start: 11-13-2022 Telephone encounter Yvon Thompson [facility] Start: 09-18-2022 End: 09-18-2022 ambulatory Yvon Ball Other [facility] Other Start: 09-18-2022 Nursing evaluation o f patient and report Yvon Ball [facility] Start: 01-27-2022 Adult health examination Yvon Ball Other [facility] Other Start: 01-26-2022 End: 01-27-[address] YVON THOMPSON Facility:[facility] Start: 01-06-2022 End: 01-23-[address] YVON THOMPSON Facility:[facility] Start: 12-29-2021 End: 12-30-[address] YVON THOMPSON Facility:[facility] Start: 12-03-2021 Encounter for genera l adult medical examination without abnormal findings DR YVON THOMPSON [facility] Start: 12-01-2021 End: 12-02-[address] YVON THOMPSON Facility:[facility] Start: 12-01-2021 End: 12-02-2021 Encounter for general adult medical examination without abnormal findings DR YVON THOMPSON Facility:[facility] Procedures Date Procedure Procedure Detail Performing Clinician Start: 12-01-[address] ELI THOMPSON Comment on above: Performed By: #### [facility] #### [facility] [address] [place] [address] Dr. Derrek Miramontes Start: 10-14-2018 Screening for malign ant neoplasm of colon Yvon Thompson Other Start: 10-11-2018 Diabetes mellitus screening Yvon Thompson Other Start: 10-10-2018 General examination of patient Yvon Thompson Other Start: 07-25-2014 Screening for malign ant neoplasm of prostate Yvon Thompson Other Payers Date Payer Category Payer Unknown [id number] [id number] 1960 Unknown [id number] [id number] [id number] 1960 Unknown [id number] [id number] [id number] 1960 Unknown [id number] [id number] [id number] 1957 Unknown [id number] 1957 Unknown [id number] Unknown [id number] Social History Date Type Detail Facility Sex Assigned At [facility] Other Clinical Notes 12-30-2021 to 01-13-2023 Note Date & Type Note Facility 01-13-2023 Evaluation note Encounter Date Diagnosis Assessment Notes Dec, ALIZE (obstructi ve sleep apnea) (ICD-10 - G47.33) [facility] Other 11-17-2023 Evaluation note* Encounter Date Diagnosis Assessment Notes Treatment Notes Treatment Clinical Notes Dec, COVID-19 (ICD-10 - U07.1) Instructed to use Robitussin or Mucinex for cough, saline or Flonase NS for congestion, Tylenol for pain and fever. Instructed to hold Atorvastatin while taking Paxlovid. Self isolate at home. - Cannot work - avoid contact with others - avoid pets - wipe counters, door knobs if touched - if can't avoid leaving home, must wear mask to protect others - need to stay isolated for 10 days from onset of symptoms - to discontinue isolation must be 5 days AND must be without fever for 24 hours AND symptoms must be improving. Always wear a mask in public places for complete 10 days Dec, Persistent atrial fibrillation (ICD-10 - I48.19) ECHO: LVEF 60 to 65%, RV normal, LVH, ELVIRA, mild AA dilatation 4.0cm - 12/2022 This patient is in NSR or rate controlled. This patient is anticoagulated to prevent thromboembolic events. 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 [facility] Other 11-10-2023 Evaluation note* Encounter Date Diagnosis Assessment Notes Treatment Notes Treatment Clinical Notes Dec, Persistent atrial fibrillation (ICD-10 - I48.19) ECHO: LVEF 60 to 65%, RV normal, LVH, ELVIRA, mild AA dilatation 4.0cm - 12/2022 This patient is rate controlled. This patient is anticoagulated to prevent thromboembolic events. Completed Echo w/ normal LVEF w/o valvular heart disease. Scheduled for sleep study. Schedule TMET w/ NM imaging to exclude chronotropic incompetence and CAD. Refer to Cardiology for further evaluation and treatment. Discussed jehovah's witness of NSR. Discussed briefly chronotropic incompetence Dec, Pure hypercholestero lemia (ICD-10 - E78.00) Instructed on diet and exercise with initiation of statin therapy to reduce ASCVD risk.Discussed the beneficial effects of lowering cholesterol in reducing the risk for cerebrovascular and cardiovascular disease. Dec, Suspected sleep apne a (ICD-10 - R29.818) Referral for home sleep study. Aware this may be a trigger for AFib and would decrease future treatment to restore NSR. Dec, Other obesity due to excess calories (ICD-10 - E66.09) This patient has been instructed on a low-fat, high-fiber diet. They are instructed to reduce calories, portion sizes and snacks. It is recommended that they exercise for 30 minutes, 3-5 times weekly. Dec, Body mass index [BMI ] 31.0-31.9, adult (ICD-10 - Z68.31) [facility] Other 11-10-2023 Evaluation note* Encounter Date Diagnosis Assessment Notes Treatment Notes Treatment Clinical Notes Dec, Persistent atrial fibrillation (ICD-10 - I48.19) ECHO: LVEF 60 to 65%, RV normal, LVH, ELVIRA, mild AA dilatation 4.0cm - 12/2022 This patient is rate controlled. This patient is anticoagulated to prevent thromboembolic events. Completed Echo w/ normal LVEF w/o valvular heart disease. Schedule Lexiscan stress testing to r/o obstructive coronary disease Scheduled for sleep study. Refer to Cardiology for further evaluation and treatment. Discussed jehovah's witness of NSR. Dec, Pure hypercholestero lemia (ICD-10 - E78.00) Instructed on diet and exercise with initiation of statin therapy to reduce ASCVD risk.Discussed the beneficial effects of lowering cholesterol in reducing the risk for cerebrovascular and cardiovascular disease. Dec, Suspected sleep apne a (ICD-10 - R29.818) Referral for home sleep study. Aware this may be a trigger for AFib and would decrease future treatment to restore NSR. Dec, Other obesity due to excess calories (ICD-10 - E66.09) This patient has been instructed on a low-fat, high-fiber diet. They are instructed to reduce calories, portion sizes and snacks. It is recommended that they exercise for 30 minutes, 3-5 times weekly. Dec, Body mass index [BMI ] 31.0-31.9, adult (ICD-10 - Z68.31) [facility] Other 11-08-2023 Evaluation note* Encounter Date Diagnosis Assessment Notes Treatment Notes Treatment Clinical Notes Dec, Persistent atrial fibrillation (ICD-10 - I48.19) ECHO: LVEF 60 to 65%, RV normal, LVH, ELVIRA, mild AA dilatation 4.0cm - 12/2022 [facility] Other 11-02-2023 Evaluation note* Encounter Date Diagnosis Assessment Notes Treatment Notes Treatment Clinical Notes Dec, Persistent atrial fibrillation (ICD-10 - I48.19) [facility] Other 10-23-2023 Evaluation note* Encounter Date Diagnosis Assessment Notes Treatment Notes Treatment Clinical Notes Nov, Wellness examination (ICD-10 - Z00.00) Healthy diet and exercise. Reviewed age-appropriate preventive testing recommended. Nov, Pure hypercholestero lemia (ICD-10 - E78.00) Instructed on diet and exercise.Discussed the beneficial effects of lowering cholesterol in reducing the risk for cerebrovascular and cardiovascular disease. Nov, Palpitations (ICD-10 - R00.2) Avoid stimulants, push fluids, check EKG Nov, Nocturnal leg cramps (ICD-10 - G47.62) Hydrate, mild exercise. Reviewed labs: normal Ca, K, Hgb Nov, Benign prostatic hyperplasia with lower urinary tract symptoms (ICD-10 - N40.1) Symptoms tolerable Nov, Lumbar spondylosis (ICD-10 - M47.816) The patient is instructed to avoid bending, twisting or lifting. They are to use intermittent heat and ice as needed. They may schedule a massage or gentle manipulation. They may safely use Tylenol as needed. Nov, Screening PSA (prost ate specific antigen) (ICD-10 - Z12.5) Yearly EUSEBIO and PSA [facility] Other 09-29-2023 Evaluation note* Encounter Date Diagnosis Assessment Notes Treatment Notes Treatment Clinical Notes Oct, Wellness examination (ICD-10 - Z00.00) [facility] Other 08-04-2023 Evaluation note* Encounter Date Diagnosis Assessment Notes Treatment Notes Treatment Clinical Notes Sep, Seasonal allergic rhinitis, unspecified trigger (ICD-10 - J30.2) [facility] Other 11-15-2022 NotePROCEDURE: XR HIP RT 2 3V WO PELVIS COMPARISON: None. HISTORY: Contusion of right hip region FINDINGS: BONES:No acute fracture or dislocation. Minimal degenerative change with marginal osteophyte formation along the superior acetabulum SOFT TISSUES:Negative. No visible soft tissue swelling. EFFUSION:None visible. OTHER: Negative. IMPRESSION: Minimal degenerative change Electronically authenticated by: DEMETRIO BENAVIDEZ Date: 2021-12-30 07:55[facility] noteNo InformationNort [place] Other Hisnkrf general Narrative - Reported* Type Description Date Surgical History Problem Title : CHOL ECYSTECTOMY, LAPAROSCOPIC, USING MULTIPLE PORTS (85507), Problem Status : Active, Surgical History Problem Title : COLO NOSCOPY (61274), Problem Comment : Tubular Adenoma, Problem Status : Active, Surgical History Problem Title : past surgical history reviewed, Problem Description : past surgical history reviewed, Problem Comment : reviewed - no changes required, Problem Status : Resolved, Surgical History Problem Title : surg ical procedures, hx of, Problem Description : surgical procedures, hx of, Problem Comment : Colonoscopy 2012 Tonsillectomy B/L Herniorrhaphy Lymph Node Excison neck, Problem Status : Active, Surgical History Problem Title : surg ical procedures, hx of, Problem Description : surgical procedures, hx of, Problem Comment : Colonoscopy 2012, Problem Status : Resolved, [place] Other Hisrair general Narrative - Reported* Type Description Date Medical History Acute pain of right hip Medical History Lumbar strain Medical History Benign prostatic hyp erplasia with lower urinary tract symptoms Medical History Nocturnal leg cramps Medical History Pure hypercholesterolemia Medical History Palpitations Medical History Lumbar spondylosis Medical History Hyperglycemia Surgical History CHOLECYSTECTOMY, LAPAROSCOPIC, USING MULTIPLE PORTS Surgical History COLONOSCOPY Surgical History Tonsillectomy B/L Herniorrhaphy Lymph Node Excison neck, Surgical History Tubular Adenoma Hospitalization History see surgical hx [place] Other Hisvvrl general Narrative - Reported* Type Description Date Medical History Acute pain of right hip Medical History Lumbar strain Medical History Benign prostatic hyp erplasia with lower urinary tract symptoms Medical History Nocturnal leg cramps Medical History Pure hypercholesterolemia Medical History Palpitations Medical History Lumbar spondylosis Medical History Hyperglycemia Medical History ALIZE Surgical History CHOLECYSTECTOMY, LAPAROSCOPIC, USING MULTIPLE PORTS Surgical History COLONOSCOPY Surgical History Tonsillectomy B/L Herniorrhaphy Lymph Node Excison neck, Surgical History Tubular Adenoma Hospitalization History see surgical hx [facility] Other Reason for referral (narrative)* Reason Referral for new ons et atrial fibrillation Diagnosis 1 Persistent atrial fi brillation (I48.19) Referral Organization [facility] Referring Provider First Name Yvon Referring Provider Last Name Rafael Referring Provider Specialty Internal Me dicine Referred Organization [facility] Referred Provider Boy Morgan [place],[address] Referred Provider Specialty Cardiology Referral Priority Routine General Notes Mr. Castillo was noted to have atrial fibrillation during his annual wellness examination. He was completely asymptomatic w/o chest pain, dyspnea, palpitations or lightheadedness. He denies orthopnea, PND or increasing edema. He has hyperlipidemia but no previous history of hypertension, diabetes, coronary artery disease or atrial fibrillation. He is being referred for further evaluation and treatment for his atrial fibrillation. I briefly discussed treatment options for restoring NSR. Clinical Notes Labs, stress testing , echocardiogram completed and should be included in this referral [place] Other Summary Purpose Family History No Family History Records FoundNo Family History Records FoundNo Family History Records Found Advance Directives No Advanced Directives Records FoundNo Advanced Directives Records FoundNo Advanced Directives Records Found Additional Source Comments (unrecognized sect ion and content) No Status Records FoundNo Status Records FoundNo Status Records Found INFORMATION SOURCE (unrecogn ized section and content) DATE CREATED AUTHOR 11/02/2020 [facility] DATE CREATED AUTHOR AUTHOR'S ORGANIZ ATION [facility]/06/2022 [facility] DATE CREATED AUTHOR AUTHOR'S ORGANIZ ATION 03/11/2022 [facility] dical Specialist REASON FOR VISIT (unrecogniz ed section and content) [facility] Informationadditional instructionsNo Informationdiscuss test [phone] COVID +No Informationdiscuss test results FOR RECORDS PERTAINING TO PATIENTS WHO ARE OR HAVE BEEN ENROLLED IN A CHEMICAL DEPENDENCY/SUBSTANCEABUSE PROGRAM, SOME INFORMATION MAY BE OMITTED. This clinical summary was aggregated from multiple sources. Caution should be exercised in using it in the provision of clinical care. This summary normalizes information from multiple sources, and as a consequence, information in this document may materially change the coding, format and clinical context of patient data. In addition, data may be omitted in some cases. CLINICAL DECISIONS SHOULD BE BASED ON THE PRIMARY CLINICAL RECORDS. [facility] [employer] [facility]. provides no warranty or guarantee of the accuracy or completeness of information in this document.
== END 2023-02-11 20:56 | disposition home or self-care (01) ==
LOC: SLEEP 20:55
PROVIDERS: PCP Internal Medicine; Visit Provider Internal Medicine
DX: G47.33 Obstructive sleep apnea (adult) (pediatric) (principal)
CPT/HCPCS: 95811

== ENCOUNTER 2024-05-08 06:32 | Outpatient (OUT) | payer OTHER, SELFPAY ==
--- OUTSIDE RECORDS SUMMARY | 2024-05-08 06:35 | XMS_ITS | CCD ---
Author Organization [facility] Care Team Providers Care Contract Technician Name Role Phone DR YVON HALL Attending Unavailable BALL, DR RODRIGUEZ Consulting Unavailable BALL, DR RODRIGUEZ Primary Care Unavailable BALL, DR RODRIGUEZ Admitting Unavailable WEST, DR DEMETRIO Tejada Consulting Unavailable RAFAEL, DR RODRIGUEZ Consulting Unavailable RAFAEL, DR RODRIGUEZ Primary Care Unavailable BALL, DR RODRIGUEZ Admitting Unavailable RAFAEL, DR RODRIGUEZ Attending Unavailable RAFAEL, DR RODRIGUEZ Consulting Unavailable BALL, DR RODRIGUEZ Primary Care Unavailable BALL, DR RODRIGUEZ Admitting Unavailable BALL, DR RODRIGUEZ Attending Unavailable WEST, DR DEMETRIO Tejada Consulting Unavailable RAFAEL, DR RODRIGUEZ Primary Care Unavailable RAFAEL, DR RODRIGUEZ Admitting Unavailable RAFAEL, DR RODRIGUEZ Attending Unavailable Yvon Hall Unavailable Leda Morrell Unavailable Yvon Hall DO Primary Care Provider Leda Morrell MD Attending Provider Sean Garcia MD Attending Provider Sean Garcia Admitting Unavailable Yvon Hall Primary Care Unavailable Sean Garcia Attending Unavailable Leda Morrell Attending Unavailable Leda Morrell Admitting Unavailable Yvon Hall Primary Care Unavailable Medications Current Medications Medication Drug Class(es) Dates Sig (Normalized) Sig (Original) apixaban 5 mg oral tablet (5 sources) Factor Xa Inhibitor take 1 tablet by mouth every twelve hours Eliquis 5 MG 1 tablet Orally Twice a day Active [place] (No Known Home Meds) (1 source) Start: 03-02-2024 [place] (No Known Home Meds) Active March 02, 2024 12:00am {20 (nirmatrelvir 150 MG Oral Tablet) / 10 (ritonavir 100 MG Oral Tablet) } Pack [Paxlovid 5-Day] (2 sources) Start: 01-01-2023 Paxlovid (300/100) 20 x 150 MG & 10 x 100MG as directed Orally bid for 5 days Dec, Active Completed/Discontinued Medications Medication Drug Class(es) Dates Sig (Normalized) Sig (Original) aspirin 81 mg delayed release oral tablet (4 sources) Platelet Aggregation Inhibitor, Nonsteroidal Anti-inflammatory Drug Start: 07-15-2023 End: 12-31-2023 take 1 tablet by mouth once daily Aspirin 81 mg tablet,delayed release (DR/EC) Discontinued 81 MG PO Daily July 14, 2023 11:00pm December 31, 2023 9:04am Start: 03-08-2023 take 1 tablet by gay th every twenty-four hours Aspirin Adult Low Dose 81 MG 1 tablet Orally Once a day for 30 days Feb, Active atorvastatin 40 mg oral tablet (11 sources) HMG-CoA Reductase Inhibitor Start: 07-15-2023 End: 07-16-2023 take 1 tablet by mouth once daily Atorvastatin 40 mg tablet Discontinued 40 MG PO Daily July 16, 2023 8:06am July 16, 2023 8:06am [employer] tablet Orally Once a day; Note: Source Status: Taking; Refills: 5; Provider: Rafael Dawkins Start: 12-27-2022 take 1 tablet by gay th every twenty-four hours Atorvastatin Calcium 40 MG 1 tablet Orally Once a day for 30 days Dec, Active azithromycin 250 mg oral tablet (2 sources) Macrolide Antimicrobial Start: 02-22-2024 End: 03-02-2024 Azithromycin 250 mg tablet Discontinued 250 MG PO .COMPLEX 6 5 February 22, 2024 11:29am March 02, 2024 11:40am 2 tabs on first day followed by 1 tab on days 2-5 citric acid 75 mg/ml / magnesium oxide 21.9 mg/ml / picosulfate sodium 0.0625 mg/ml oral solution (13 sources) Calculi Dissolution Agent, Anti-coagulant Start: 11-15-2018 take 160 mL by mouth in the evening, then take 160 mL by mouth twice daily in the evening Clenpiq 10-3.5-12 MG-GM -GM/160ML 160 ML AT 3:00 PM AND 160 ML AT 9:00 PM Orally TWICE A DAY for 1 days PLEASE CHECK ALLERGIES Nov, Not-Taking/PRN etodolac 400 mg oral tablet (13 sources) Nonsteroidal Anti-inflammatory Drug Start: 01-22-2022 take 1 tablet by mouth twice daily as needed Etodolac 400mg etodolac 400mg, 1 (one) tablet tablet two times daily # 60, 01/22/2022, No Refill. Active oral two times daily for 0 *Pick strength-form from [employer] for eRX* Jan, Not-Taking/PRN paxlovid (300/100) 20 x 150 mg & 10 x 100mg tablet therapy pack (4 sources) Start: 01-01-2023 Paxlovid (300/100) 20 x 150 MG & 10 x 100MG as directed Orally bid for 5 days Dec, Not-Taking/PRN Start: 01-01-2023 Paxlovid (300/ 100) 20 x 150 MG & 10 x 100MG as directed Orally bid for 5 days Dec, Active triamcinolone acetonide 40 mg/ml injectable suspension (13 sources) Corticosteroid Start: 09-18-2022 Kenalog-40 Sep, 60 mg Problems Active Problems Problem Classification Problem Date Documented Date Episodic/Chronic Acute bronchitis (2 sources) Acute infective bronchitis; Translations: [Acute bronchitis due to other specified organisms] 02-22-2024 Episodic Biliary tract disease (2 sources) Cholelithiasis AND cholecystitis without obstruction; Translations: [Calculus of gallbladder with chronic cholecystitis without obstruction] Episodic Cardiac dysrhythmias (15 sources) Persistent atrial fibrillation; Translations: [Other persistent atrial fibrillation] 07-16-2023 Chronic Cardiac dysrhythmias (14 sources) Palpitations; Translations: [Palpitations] Episodic Diabetes mellitus without complication (13 sources) Hyperglycemia; Translations: [Hyperglycemia, unspecified] Episodic Disorders of lipid metabolism (20 sources) Pure hypercholesterolemia; Translations: [Pure hypercholesterolemia, unspecified] Chronic Hyperplasia of prostate (16 sources) Benign prostatic hypertrophy without outflow obstruction; [...] right hip] Chronic Other connective tissue disease (13 sources) Cramp in lower leg associated with [...] right hip] Episodic Other non-traumatic joint disorders (11 sources) Arthralgia of the pelvic region and thigh; Translations: [Pain in right hip] Episodic Other nutritional; endocrine; and metabolic disorders (4 sources) Obese class I; Translations: [Body mass index 33.0-33.9, adult] Onset: 03-11-2016 Chronic Other nutritional; endocrine; and metabolic disorders (2 sources) Simple obesity ; Translations: [Other obesity due to excess calories] Onset: 03-11-2016 Chronic Other nutritional; endocrine; and metabolic disorders (4 sources) Obesity; Translations: [Obesity, unspecified] 08-04-2023 Chronic Other nutritional; endocrine; and metabolic disorders (7 sources) Body mass index 30+ - obesity; Translations: [Body mass index (BMI) 31.0-31.9, adult] Chronic Other nutritional; endocrine; and metabolic disorders (7 sources) Obesity caused by energy imbalance; Translations: [Other obesity due to excess calories] Chronic Other nutritional; endocrine; and metabolic disorders (2 sources) Other obesity due to excess calories Chronic Other nutritional; endocrine; and metabolic disorders (2 sources) Body mass index (BMI) 31.0-31.9, adult Chronic Other screening for suspected conditions (not mental disorders or infectious disease) (7 sources) Encounter for screening for malignant neoplasm of prostate; Translations: [Encounter for screening for diseases of the blood and blood-forming organs and certain disorders involving the immune mechanism] Onset: 10-11-2018 Episodic Comment on above: Problem List clean-u p per request of Phys. EHR Cmte Other upper respiratory disease (2 sources) Allergic rhinitis; Translations: [Allergic rhinitis, unspecified] Chronic Other upper respiratory disease (2 sources) Allergic rhinitis due to pollen; Translations: [Allergic rhinitis due to pollen] Chronic Other upper respiratory disease (15 sources) Seasonal allergic rhinitis; Translations: [Other seasonal allergic rhinitis] Onset: 10-13-2016 Chronic Other upper respiratory disease (1 source) Other seasonal allergic rhinitis Chronic Other upper respiratory infections (4 sources) Acute maxillary sinusitis; Translations: [Acute maxillary sinusitis, unspecified] Onset: 05-13-2016 Episodic Residual codes; unclassified (7 sources) Obstructive sleep apnea syndrome; Translations: [Obstructive sleep apnea (adult) (pediatric)] 07-16-2023 Chronic Comment on above: CPAP Residual codes; unclassified (3 sources) Obstructive sleep apnea (adult) (pediatric); Translations: [Obstructive sleep apnea (adult)(pediatric)] Chronic Spondylosis; intervertebral disc disorders; other back problems (20 sources) Spondylosis without myelopathy or radiculopathy, lumbar region; Translations: [Lumbosacral spondylosis without myelopathy] Onset: 04-04-2018 Chronic Sprains and strains (17 sources) Injury of superior glenoid labrum of shoulder joint; Translations: [Superior glenoid labrum lesion of left shoulder, subsequent encounter] Onset: 03-11-2016 Episodic Superficial injury; contusion (8 sources) Contusion of right hip, subsequent encounter; Translations: [Contusion of right shoulder] Onset: 01-06-2022 Resolved: 01-19-2020 Episodic Unclassified (8 sources) Other persistent atrial fibrillation; Translations: [Other persistent atrial fibrillation] Onset: 12-31-2023 Urinary tract infections (2 sources) Urethritis; Translations: [...] [Pain in left shoulder] Onset: 03-11-2016 Episodic Viral infection (3 sources) Disease caused by 2019-nCoV; Translations: [COVID-19] Results Test Name Value Interpretation Reference Range [facility] 03-15-2024 -- ---- Specimen: [id number] Received: 03/15/24 Status: KAYLEN Solano Num: [id number] Spec Type: Surgical Subm Dr: Sean Garcia MD Tissues: A Colon Biopsy (COL POLYP ASC') B Colon Biopsy (TRANSV COL NIMA) Procedures: HE/4, Gross/Micro L4/2 ---- Age/ Patient Sex Location Account Attending Physician ---- George Castillo 64/M [id number] Sean Garcia MD ---- SPEC NUM: [id number] RECD: 03/15/24 STATUS: KAYLEN SOLANO NUM: [id number] NADINE: 03/15/[address] [facility] [address]: Sean Garcia MD ENTERED: 03/15/24 [facility] DR: WOODY TYPE: Surgical DEPT: S ENTERED BY: [id number] RECV BY: [id number] ORDERED: HE/4, Gross/Micro L4/2 ORDERED: HE/4, Gross/Micro L4/2 Pathological Diagnosis A. Colon, ascending, polypectomy: - Small polypoid fragment of benign colonic mucosa with no significant histopathology. - No evidence of hyperplastic or adenomatous polyp identified. B. Colon, transverse, polypectomy: - Benign colonic mucosa with a lymphoid aggregates. - No evidence of hyperplastic or adenomatous polyp identified. Clinical Information History of colon polyps, family history colon cancer Gross Description Part A is received in formalin labeled with the patients name, date of , and ascending polyp is a brooke-amaral, focally erythematous, friable, 0.2 cm polypoid fragment. The specimen is entirely submitted in a single cassette. (1, ns, [id number]) J Part B is received in formalin labeled with the patients name, date of , and transverse polyp is a brooke-amaral, focally erythematous, friable, 0.3 cm in greatest dimension polypoid fragment. The specimen is entirely submitted in a single cassette. (1, ns, [id number]) JG ---- Specimen: [id number] Received: 03/15/24 Status: KAYLEN Solano Num: [id number] Spec Type: Surgical Subm Dr: Sean Garcia MD Tissues: A Colon Biopsy (COL POLYP ASC') B Colon Biopsy (TRANSV COL NIMA) Procedures: HE/Vonda, Gross/Micro L4/2 ---- Patient: George Castillo [id number] (Continued) ---- Specimen: [id number] Received: 03/15/24 (Continued) Signed (signature on file) Teofilo Lam MD 03/16/24 1034 ---- Specimen: [id number] Received: 03/15/24 Status: KAYLEN Solano Num: [id number] Spec Type: Surgical Subm Dr: Sean Garcia MD Tissues: A Colon Biopsy (COL POLYP ASC') B Colon Biopsy (TRANSV COL NIMA) Procedures: HE/Vonda, Gross/Micro L4/2 ---- Patient: George Castillo [id number] (Continued) ---- Specimen: [id number] Received: 03/15/24 (Continued) Microscopic Description A B: Microscopic examination is performed. CPT Codes 72408 x2 ---- ---- Specimen: [id number] Received: 03/15/24 Status: KAYLEN Solano Num: [id number] Spec Type: Surgical Subm Dr: Sean Garcia MD Tissues: A Colon Biopsy (COL POLYP ASC') B Colon Biopsy (TRANSV COL NIMA) Procedures: HE/Vonda, Gross/Micro L4/2 ---- Patient: George Castillo [id number] (Continued) ---- Signed (signature on file) Teofilo Lam MD 03/16/24 1034 Normal [facility] FPG ECG *CARDIOLOGY ONLY*on 12-31-2023 FPG ECG *CARDIOLOGY ONLY* [facility] [place] [address] Electrocardiograph Report Signed Patient: George Castillo MR#: [id number] : 1960 Acct:[id number] Age/Sex: 63 / M ADM Date: 12/31/23 Loc: EKGCARDIO Room: Type: [facility] Attending Dr: Leda Morrell MD Ordering Provider: Leda Morrell MD Date of Service: 12/31/23 ECG/FPG ECG *CARDIOLOGY ONLY*: I48.19 - Other persistent atrial fibrillation Copies to: Test Reason : Blood Pressure : */* mmHG Vent. Rate : 72 BPM Atrial Rate : * BPM P-R Int : * ms QRS Dur : 90 ms QT Int : 366 ms P-R-T Axes : * 8 0 degrees QTcB Int : 400 ms Atrial fibrillation Low voltage QRS Possible Inferior infarct , age undetermined Cannot rule out Anterior infarct , age undetermined Abnormal ECG No previous ECGs available Confirmed by Boy Morgan ([id number]) on 01/03/2024 11:11:21 AM Referred By: Electronically Signed By: Boy Morgan Transcribed By: MUS Signed By Boy Morgan MD 01/03/24 1111 Normal [facility] MRI Lumbar Spine w/oon 03-10 MRI Lumbar [...] by Farooq Johnson on 03/11/2022 1208 Normal [facility] Cardiology Rn XR LSPINE W_OBLS AND FLEX_EX Ton 01-27-2022 [...] DEMETRIO BENAVIDEZ Date: 2022-01-27 07:10 Normal [facility] CBC AUTO DIFFon 12-01-2021 BASO # 0.0 103/ul Normal 0.0-0.1 [facility] Comment on above: Performed By: #### C BC #### [facility] Laboratory [address] [place] [address] Dr. Derrek Miramontes Basophils/100 WBC (Bld) 0.7 % Normal 0.2-2.0 [facility] Comment on above: Performed By: #### C BC #### [facility] Laboratory [address] [place] [address] Dr. Derrek Miramontes EO # 0.1 103/ul Normal 0.0-0.7 [facility] Comment on above: Performed By: #### C BC #### [facility] Laboratory [address] [place] [address] Dr. Derrek Miramontes Eosinophils/100 WBC (Bld) 2.0 % Normal 0.9-7.0 [facility] Comment on above: Performed By: #### C BC #### [facility] Laboratory [address] [place] [address] Dr. Derrek Miramontes Erythrocyte distribution width (RBC) [Ratio] 14.2 % Normal 11.0-15.0 [facility] Comment on above: Performed By: #### C BC #### [facility] Laboratory [address] [place] [address] Dr. Derrek Miramontes Hematocrit (Bld) [Volume fraction] 46.7 % Normal 42.0-54.0 [facility] Comment on above: Performed By: #### C BC #### [facility] Laboratory [address] [place] [address] Dr. Derrek Miramontes Hemoglobin (Bld) [Mass/Vol] 15.3 g/dL Normal 14.0-18.0 [facility] Comment on above: Performed By: #### C BC #### [facility] Laboratory [address] [address] [address] Derrek Miramontes IG # 0.07 10e3/ul Critically high 0.00-0.03 [facility] Comment on above: Performed By: #### C BC #### [facility] Laboratory [address] [place] [address] Dr. Derrek Miramontes IG % 1.2 % Critically high 0.0-0.5 [facility] Comment on above: Performed By: #### C BC #### [facility] Laboratory [address] [address] [address] Derrek Miramontes LYMPH # 1.0 103/ul Critically low 1.2-3.8 The [facility] Comment on above: Performed By: #### C BC #### [facility] Laboratory [address] [place] [address] Dr. Derrek Miramontes Lymphocytes/100 WBC (Bld) 16.3 % Critically low 20.5-60.0 [facility] Comment on above: Performed By: #### C BC #### [facility] Laboratory [address] [place] [address] Dr. Derrek Miramontes MANUAL DIFF REQ NO Normal [facility] Comment on above: Performed By: #### C BC #### [facility] Laboratory [address] [place] [address] Dr. Derrek Miramontes MCH (RBC) [Entitic mass] 29.5 pg Normal 25.9-34.0 [facility] Comment on above: Performed By: #### C BC #### [facility] Laboratory [address] [place] [address] Dr. Derrek Miramontes MCHC (RBC) [Mass/Vol] 32.8 g/dL Normal 29.9-35.2 [facility] Comment on above: Performed By: #### C BC #### [facility] [address] [place] [address] Dr. Derrek Miramontes MCV (RBC) [Entitic vol] 90.2 fL Normal 80.0-94.0 [facility] Comment on above: Performed By: #### C BC #### [facility] Laboratory [address] [address] [address] Derrek Miramontes MONO # 0.4 103/ul Normal 0.3-0.8 [facility] Comment on above: Performed By: #### C BC #### [facility] [address] [place] [address] Dr. Derrek Miramontes Monocytes/100 WBC (Bld) 7.1 % Normal 1.7-12.0 [facility] Comment on above: Performed By: #### C BC #### [facility] Laboratory [address] [place] [address] Dr. Derrek Miramontes NEUT # 4.3 103/ul Normal 1.4-6.5 [facility] Comment on above: Performed By: #### C BC #### [facility] [address] [place] [address] Dr. Derrek Miramontes Neutrophils/100 WBC (Bld) 72.7 % Normal 43.0-75.0 [facility] Comment on above: Performed By: #### C BC #### [facility] [address] [place] [address] Dr. Derrek Miramontes Platelet mean volume (Bld) [Entitic vol] 10.0 fL Normal 9.5-13.5 [facility] Comment on above: Performed By: #### C BC #### [facility] Laboratory [address] [place] [address] Dr. Derrek Miramontes PLT 186 103/ul Normal 150-450 [facility] Comment on above: Performed By: #### C BC #### [facility] Laboratory [address] [place] [address] Dr. Derrek Miramontes RBC 5.18 106/ul Normal 4.70-6.10 [facility] Comment on above: Performed By: #### C BC #### [facility] [address] [place] [address] Dr. Derrek Miramontes WBC 5.9 103/ul Normal 4.0-11.0 [facility] Comment on above: Performed By: #### C BC #### [facility] [address] [place] [address] Dr. Derrek Miramontes LIPID PROFILEon 12-01-2021 CHOL-HDL RATIO NORM SEE BELOW Normal [facility] Comment on above: Result Comment: 3.3 - 4.4 LOW RISK 4.4 - 7.1 AVERAGE RISK 7.1 - 11.0 MODERATE RISK >11.0 HIGH RISK Performed By: #### C MP, LIPID #### [facility] [address] [place] [address] Dr. Derrek Miramontes Cholesterol [Mass/Vol] 198 mg/dL Normal <=200 [facility] Comment on above: Performed By: #### C MP, LIPID #### [facility] [address] [place] [address] Dr. Derrek Miramontes Cholesterol in HDL [Mass/Vol] 44 mg/dL Normal 40-60 [facility] Comment on above: Performed By: #### C MP, LIPID #### [facility] [address] [place] [address] Dr. Derrek Miramontes Cholesterol in LDL [Mass/Vol] 140.6 mg/dL Normal [facility] Comment on above: Performed By: #### C MP, LIPID #### [facility] [address] [place] [address] Dr. Derrek Miramontes Cholesterol.total/ Cholesterol in HDL [Mass ratio] 4.5 {ratio} Normal [facility] Comment on above: Performed By: #### C MP, LIPID #### [facility] [address] [place] [address] Dr. Derrek Miramontes HDL NORMAL > or = 60 mg/dl - LO W CARDIOVASCULAR RISK <40 mg/dl - HIGH CARDIOVASCULAR RISK Normal [facility] Comment on above: Performed By: #### C MP, LIPID #### [facility] [address] [address] [address] Derrek Miramontes LDL CALC NORMAL SEE BELOW Normal [facility] Comment on above: Result Comment: <100 mg/dl OPTIMAL 100 - 129 mg/dl NEAR OR ABOVE OPTIMAL 130 - 159 mg/dl BORDERLINE HIGH 160 - 189 mg/dl HIGH >190 mg/dl VERY HIGH Performed By: #### C MP, LIPID #### [facility] [address] [address] [address] Derrek Miramontes Triglyceride [Mass/Vol] 67 mg/dL Normal <=150 [facility] Comment on above: Performed By: #### C MP, LIPID #### [facility] [address] [address] [address] Derrek Miramontes VLDL CALC 13.4 mg/dL Normal [facility] Comment on above: Performed By: #### C MP, LIPID #### [facility] [address] [place] [address] Dr. Derrek Miramontes PROF 14(COMP METB)on 022 Albumin [Mass/Vol] 3.8 g/dL Normal 3.4-5.0 [facility] Comment on above: Performed By: #### C MP, LIPID #### [facility] [address] [place] [address] Dr. Derrek Miramontes Albumin/Globulin [Mass ratio] 1.4 {ratio} Normal [facility] Comment on above: Performed By: #### C MP, LIPID #### [facility] [address] [place] [address] Dr. Derrek Miramontes ALP [Catalytic activity/Vol] 79 U/L Normal 46-116 [facility] Comment on above: Performed By: #### C MP, LIPID #### [facility] [address] [address] [address] Derrek Miramontes ALT [Catalytic activity/Vol] 28 U/L Normal 16-63 [facility] Comment on above: Performed By: #### C MP, LIPID #### [facility] [address] [address] [address] Derrek Miramontes Anion gap [Moles/Vol] 7.2 mmol/L Normal [facility] Comment on above: Performed By: #### C MP, LIPID #### [facility] [address] [address] [address] Derrek Miramontes AST [Catalytic activity/Vol] 11 U/L Critically low 15-37 [facility] Comment on above: Performed By: #### C MP, LIPID #### [facility] [address] [address] [address] Derrek Miramontes Bilirubin [Mass/Vol] 0.5 mg/dL Normal 0.2-1.0 [facility] Comment on above: Performed By: #### C MP, LIPID #### [facility] [address] [place] [address] Dr. Derrek Miramontes Calcium [Mass/Vol] 8.8 mg/dL Normal 8.5-10.1 [facility] Comment on above: Performed By: #### C MP, LIPID #### [facility] Laboratory [address] [place] [address] Dr. Derrek Miramontes Chloride [Moles/Vol] 104 mmol/L Normal 98-107 [facility] Comment on above: Performed By: #### C MP, LIPID #### [facility] Laboratory [address] [place] [address] Dr. Derrek Miramontes CO2 [Moles/Vol] 34.1 mmol/L Critically high 21.0-32.0 [facility] Comment on above: Performed By: #### C MP, LIPID #### [facility] Laboratory [address] [place] [address] Dr. Derrek Miramontes Creatinine [Mass/Vol] 0.91 mg/dL Normal 0.70-1.30 [facility] Comment on above: Performed By: #### C MP, LIPID #### [facility] Laboratory [address] [place] [address] Dr. Derrek Miramontes EGFR-AF PALAUAN >60 Normal >=60 [facility] Comment on above: Performed By: #### C MP, LIPID #### [facility] Laboratory [address] [place] [address] Dr. Derrek Miramontes EGFR-NON AF PALAUAN >60 Normal >=60 [facility] Comment on above: Performed By: #### C MP, LIPID #### [facility] Laboratory [address] [address] [address] Derrek Miramontes Globulin (S) [Mass/Vol] 2.8 g/dL Normal [facility] Comment on above: Performed By: #### C MP, LIPID #### [facility] Laboratory [address] [address] [address] Derrek Miramontes Glucose [Mass/Vol] 113 mg/dL Critically high 74-106 [facility] Comment on above: Performed By: #### C MP, LIPID #### [facility] Laboratory [address] [address] [address] Derrek Miramontes Potassium [Moles/Vol] 4.3 mmol/L Normal 3.5-5.1 [facility] Comment on above: Performed By: #### C MP, LIPID #### [facility] Laboratory [address] [address] [address] Derrek Miramontes Protein [Mass/Vol] 6.6 g/dL Normal 6.4-8.2 [facility] Comment on above: Performed By: #### C MP, LIPID #### [facility] Laboratory [address] [address] [address] Derrek Miramontes Sodium [Moles/Vol] 141 mmol/L Normal 136-145 [facility] Comment on above: Performed By: #### C MP, LIPID #### [facility] Laboratory [address] [address] [address] Derrek Miramontes Urea nitrogen [Mass/Vol] 18.0 mg/dL Normal 7.0-18.0 [facility] Comment on above: Performed By: #### C MP, LIPID #### [facility] Laboratory [address] [address] [address] Derrek Miramontes Urea nitrogen/Creatinin e [Mass ratio] 19.8 mg/mg Normal [facility] Comment on above: Performed By: #### C MP, LIPID #### [facility] Laboratory [address] [address] [address] Derrek Miramontes Ambulatory Clinical Summaryo n 10-30-2020 Ambulatory Clinical Summary {[id number]}CD:[id number] Normal J[facility] General Surgery Office/Clini c Noteon 10-30-2020 General [...] Use:., 09/10/2020 Family History HTN: Father. Normal [facility] Comment on above: Result Comment: Elec tronically Signed By: NEIL BLAKE, Slava Lynn\.br\Date and Time Signed: 10/30/20 13:18 EDT Provider Letteron 10-30-2020 Provider Letter October 30, 2020 To Whom It May Concern, Patient may return to work on 11/11/20 May Return to Work On:11/11/2020 Restrictions: None Comments: any questions please call the office Sincerely, Dr Slava Bourgeois [facility] Ambulatory Clinical Summaryo n 10-16-2020 Ambulatory Clinical Summary {[id number]}CD:[id number] Normal [facility] General Surgery Office/Clini c Noteon [...] Use:., 09/10/2020 Family History HTN: Father. Normal [facility] Comment on above: Result Comment: Elec tronically Signed By: NEIL BLAKE, Slava Collazo\Date and Time Signed: 10/16/20 17:28 EDT Provider Letteron 10-16-2020 Provider Letter October 16, 2020 GEORGE CASTILLO [address] [place] [address] GEORGE CASTILLO 1960 To Whom It May Concern, Please excuse above patient from work. 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 [facility] Operative Reporton Operative Report [id number] 0CD:127 [facility] Pathology Noteon 10-11-2020 Pathology Note [id number]:127 [facility] Lab Reportson 10-07-2020 Lab Reports [id number] 0CD:127 [facility] Provider Letter [facility] [facility] September 18, 2020 YVON HALL, [address] [place] [address] Re: GEORGE CASTILLO Date of : 1960 Thank you for your referral of George Castillo who was seen on consultation on September 10, 2020, for cholelithiasis. I have enclosed my consultation note for your review. I will be happy to follow George. Sincerely, Slava Bourgeois MD General Surgery [facility] Consent for Procedure/Surger yon 09-12-2020 Consent for Procedure/Surgery [id number] 0CD:127 [facility] Ambulatory Clinical Summaryo n 09-10-2020 Ambulatory Clinical Summary {[id number]}CD:[id number] Normal [facility] General Surgery Office/Clini c Noteon 09-10-2020 General Surgery Office/Clinic Note HPI Staff New pt., ref by Dr. Hall for cholelithiasis . Pt was in [place] [facility] in 06/2020 ct abd/pelvis , u/s [...] Tobacco Use:., 09/10/2020 Family History HTN: Father. [facility] Comment on above: Result Comment: Elec tronically Signed By: NEIL BLAKE, Slava Lynn\.br\Date and Time Signed: 09/10/20 16:56 EDT Provider Letteron 09-10-2020 Provider Letter September 10, 2020 GEORGE CASTILLO [address] [place] [address] GEORGE CASTILLO 1960 To Whom It May Concern, Please excuse above patient from work. Date of Illness/appointment From: 09/10/20 May Return to Work On: pt was in our office for an appointment today Sincerely, Dr Slava Bourgeois [facility] Physician Referralon 021 Physician Referral [id number] 0CD:127 [facility] Physician Referral [id number] CD:127 [facility] Vital Signs Date Time Vital Sign Value Performing Clinician Facility 03-15-2024 14:01-0500 Diastolic blood pressure 81 mm[Hg] Yvon Ball DO Work Phone: [facility] 03-15-2024 14:01-0500 Heart rate 87 /min Yvon Ball DO Work Phone: [facility] 03-15-2024 14:01-0500 Respiratory rate 18 /min Yvon Ball DO Work Phone: [facility] 03-15-2024 14:01-0500 SaO2% (BldA) [Mass fraction] 97 % Yvon Ball DO Work Phone: [facility] 03-15-2024 14:01-0500 Systolic blood pressure 112 mm[Hg] Yvon Ball DO Work Phone: [facility] 03-15-2024 12:10-0500 Body height 185.42 cm Yvon Ball DO Work Phone: [facility] 03-15-2024 12:10-0500 Body weight 113.39 kg Yvon Ball DO Work Phone: [facility] 02-22-2024 10:16-0500 Body height 185.42 cm Yvon Ball DO Work Phone: [facility] 02-22-2024 10:16-0500 Body mass index (BMI) [Ratio] 34 kg/m2 Yvon Ball DO Work Phone: [facility] 02-22-2024 10:16-0500 Body weight 116.8 kg Yvon Ball DO Work Phone: [facility] 02-22-2024 10:16-0500 Diastolic blood pressure 75 mm[Hg] Yvon Ball DO Work Phone: [facility] 02-22-2024 10:16-0500 Heart rate 101 /min Yvon Ball DO Work Phone: [facility] 02-22-2024 10:16-0500 Respiratory rate 12 /min Yvon Ball DO Work Phone: [facility] 02-22-2024 10:16-0500 Systolic blood pressure 123 mm[Hg] Yvon Ball DO Work Phone: [facility] 12-31-2023 08:59-0500 Body height 185.42 cm Yvon Ball DO Work Phone: [facility] 12-31-2023 08:59-0500 Body mass index (BMI) [Ratio] 32.8 kg/m2 Yvon Ball DO Work Phone: [facility] 12-31-2023 08:59-0500 Body weight 112.94 kg Yvon Ball DO Work Phone: [facility] 12-31-2023 08:59-0500 Diastolic blood pressure 84 mm[Hg] Yvon Ball DO Work Phone: [facility] 12-31-2023 08:59-0500 Heart rate 102 /min Yvon Ball DO Work Phone: [facility] 12-31-2023 08:59-0500 SaO2% (BldA) [Mass fraction] 97 % Yvon Ball DO Work Phone: [facility] 12-31-2023 08:59-0500 Systolic blood pressure 132 mm[Hg] Yvon Ball DO Work Phone: [facility] 03-08-2023 13:00-0500 Body height 184.15 cm Leda Porsche Other [employer] [employer] Other 03-08-2023 13:00-0500 Body mass index (BMI) [Ratio] 33.04 kg/m2 Leda Porsche Other [employer] Other 03-08-2023 13:00-0500 Body weight 112.04 kg Leda Porsche Other [employer] Other 03-08-2023 13:00-0500 Diastolic blood pressure 72 mm[Hg] Leda Porsche Other [employer] Other 03-08-2023 13:00-0500 Respiratory rate 18 /min Leda Porsche Other [employer] Other 03-08-2023 13:00-0500 SaO2% (BldA) [Mass fraction] 97 % Leda Porsche Other [employer] Other 03-08-2023 13:00-0500 Systolic blood pressure 128 mm[Hg] Leda Porsche Other [employer] Other 12-25-2022 09:00-0500 Body height 184.15 cm Yvon Ball Other [employer] Other 12-25-2022 09:00-0500 Body mass index (BMI) [Ratio] 31.3 kg/m2 Yvon Ball Other [employer] Other 12-25-2022 09:00-0500 Body weight 106.14 kg Yvon Ball Other [employer] Other 12-25-2022 09:00-0500 Diastolic blood pressure 89 mm[Hg] Yvon Ball Other [employer] Other 12-25-2022 09:00-0500 Respiratory rate 12 /min Yvon Ball Other [employer] Other 12-25-2022 09:00-0500 Systolic blood pressure 127 mm[Hg] Yvon Ball Other [employer] Other 12-07-2022 14:30-0400 Body height 184.15 cm Yvon Ball Other [employer] Other 12-07-2022 14:30-0400 Body mass index (BMI) [Ratio] 31.3 kg/m2 Yvon Ball Other [employer] Other 12-07-2022 14:30-0400 Body weight 106.14 kg Yvon Ball Other [employer] Other 12-07-2022 14:30-0400 Diastolic blood pressure 80 mm[Hg] Yvon Ball Other [employer] Other 12-07-2022 14:30-0400 Respiratory rate 12 /min Yvon Ball Other [employer] Other 12-07-2022 14:30-0400 Systolic blood pressure 125 mm[Hg] Yvon Ball Other [employer] Other Encounters Encounter Date Encounter Type Care Provider Facility Start: 03-15-2024 Non-patient / Non-visit Eli in Ball DO Work Phone: [facility] Work Phone: Start: 03-15-2024 End: 03-15-2024 Admission to same day surgery center Yvon Ball DO Work Phone: [facility] Work Phone: Start: 03-15-2024 End: 03-15-2024 ambulatory Yvon Hall DO Work Phone: [facility] Work Phone: Start: 02-22-2024 End: 02-22-2024 Patient encounter procedure Yvon Hall DO Work Phone: [facility] Work Phone: Start: 12-31-2023 End: 12-31-2023 ambulatory Yvon Ball DO Work Phone: [facility] Work Phone: Start: 12-31-2023 End: 12-31-2023 Patient encounter procedure Yvon Hall DO Work Phone: [facility] Work Phone: Start: 03-10-2023 End: 03-10-2023 ambulatory Yvon Hall Other [employer] Other Start: 03-10-2023 Telephone encounter Yvon Hall [facility] [employer] Start: 03-08-2023 End: 03-08-2023 ambulatory Leda Morrell Other [employer] Other Start: 03-08-2023 Office outpatient ne w 45 minutes Leda Morrell [facility] Start: 02-12-2023 End: 02-12-2023 ambulatory Yvon Hall Other [employer] Other Start: 02-12-2023 Telephone encounter Yvon Ball FP [facility] Start: 01-13-2023 End: 01-13-2023 ambulatory Yvon Rafael Other [employer] Other Start: 01-13-2023 Telephone encounter Yvon Ball FP [facility] Start: 01-01-2023 End: 01-01-2023 ambulatory Yvon Ball Other [employer] Other Start: 01-01-2023 Office outpatient vi sit 15 minutes Yvon Ball [facility] Start: 12-25-2022 End: 12-25-2022 ambulatory Yvon Ball Other [employer] Other Start: 12-25-2022 Office outpatient vi sit 25 minutes Yvon Ball [facility] Start: 12-23-2022 End: 12-23-2022 ambulatory Yvon Ball Other [employer] Other Start: 12-23-2022 Telephone encounter Yvon Ball FP [facility] Start: 12-18-2022 End: 12-18-2022 ambulatory Yvon Rafael Other [employer] Other Start: 12-18-2022 Telephone encounter Yvon Ball FP [facility] Start: 12-17-2022 End: 12-17-2022 ambulatory Yvon Ball Other [employer] Other Start: 12-17-2022 Telephone encounter Yvon Ball FP [facility] Start: 12-07-2022 End: 12-07-2022 ambulatory Yvon Ball Other [employer] Other Start: 12-07-2022 Encounter for genera l adult medical examination without abnormal findings Yvon Ball [facility] Start: 12-07-2022 Periodic preventive med est patient 40-64yrs Yvon Ball [facility] Start: 11-13-2022 End: 11-13-2022 ambulatory Yvon Ball Other [employer] Other Start: 11-13-2022 Encounter for genera l adult medical examination without abnormal findings Yvon Hall [facility] Start: 11-13-2022 Telephone encounter Yvon Rafael [facility] Start: 09-18-2022 End: 09-18-2022 ambulatory Yvon Hall Other [employer] Other Start: 09-18-2022 Nursing evaluation o f patient and report Yvon Rafale [facility] Start: 01-27-2022 Adult health examination Yvon Hall Other [employer] Other Start: 01-26-2022 End: 01-27-[address] YVON HALL Facility:[facility] Start: 01-06-2022 End: 01-23-[address] YVON HALL Facility:[facility] Start: 12-29-2021 End: 12-30-[address] YVON HALL Facility:[facility] Start: 12-03-2021 Encounter for genera l adult medical examination without abnormal findings DR YVON HALL [facility] Start: 12-01-2021 End: 12-02-[address] YVON HALL Facility:[facility] Start: 12-01-2021 End: 12-02-2021 Encounter for general adult medical examination without abnormal findings DR YVON HALL Facility:[facility] Procedures Date Procedure Procedure Detail Performing Clinician Start: 03-15-2024 Colonoscopy Yvon Marin all DO Work Phone: Start: 12-01-[address] ELI HALL Comment on above: Performed By: #### P [facility] #### [facility] Laboratory [address] [place] [address] Dr. Derrek Miramontes Start: 10-14-2018 Screening for malign ant neoplasm of colon Yvon Hall Other Start: 10-11-2018 Diabetes mellitus screening Yvon Rafael Other Start: 10-10-2018 General examination of patient Yvon Hall Other Start: 07-25-2014 Screening for malign ant neoplasm of prostate Yvon Hall Other Plan of Treatment Date Care Activity Detail Author Start: 03-15-2024 [facility] Patient Education Hemorrhoids Co neftali polyps Know your Meds [facility] Work Phone: Payers Date Payer Category Payer Self-pay 2023 Unknown [id number] 1960 Unknown [id number] 2.16.84 [id number] 1960 Unknown [id number] 2.16.84 [id number] 1960 Unknown [id number] 2.16.84 [id number] 1960 Unknown [id number] 2.16.84 [id number] 1957 Unknown [id number] 1957 Unknown [id number] Unknown [id number] Unknown [id number] 2.16.8 [id number] Unknown [id number] 2.16.8 [id number] Social History Date Type Detail Facility Sex Assigned At [employer] Other Start: 07-16-2023 End: 03-15-2024 Tobacco smoking status NHIS Never smoked tobacco (finding) [facility] Start: 01-01-2024 Sex Patient sex un known (finding) [facility] Start: 1960 Sex Assigned At Male [facility] Start: 03-15-2024 Sex Male (finding) [facility] Goals Date Patient Goal Desired Activity /State Clinical Notes 12-30-2021 to 03-15-2024 Note Date & Type Note Facility 03-15-2024 Procedure note [facility] enter 03-15-2024 History and physi donald note [facility] enter 12-31-2023 Evaluation note Diagnosis Onset Date Resolution ALIZE (obstructive sleep apnea) acute December 30, 2 024 9:04am Persistent atrial fibrillation acute December 30, 024 9:04am Hyperlipidemia deleted December 162023 9:04am [facility] Work Phone: 1(210) 369-122711-15-2024 Evaluation note* Diagnosis Onset Date Resolution Status Admit Date ALIZE (obstructive sleep apnea) acute December 31, 2023 9:04am Persistent atrial fibrillation acute December 31, 2023 9:04am Hyperlipidemia deleted December 162023 9:04am Acute bronchitis due to othe r specified organisms acute February 22, 2024 10:07am Persistent atrial fibrillation acute February 22, 2024 10:07am [facility] Work Phone: [phone]) 889-893101-22-2024 Evaluation note* Encounter Date Diagnosis Assessment Notes Treatment Notes Treatment Clinical Notes Feb, Persistent atrial fibrillation (ICD-10 - I48.19) ECHO: LVEF 60 to 65%, RV normal, LVH, ELVIRA, mild AA dilatation 4.0cm - 12/2022 Mr Castillo is a 62yoM with PMH significant for recently diagnosed persistent Atrial fibrillation, ALIZE and hyperlipidemia who presents today to establish care for management of Atrial fibrillation. ECHO 12/22/2022 showed Normal LVEF 60-65% with normal wall motion; Normal RV size and function; Biatrial enlargement; Mild TR; Mild MR. Cardiolyte stress MPI showed normal perfusion. EKG today shows Atrial fibrillation with HR 90. Low voltages in precordial leads. Assessment: Persistent Atrial Fibrillation. CHADSVASc=0. Asymptomatic Suspected ALIZE HLD Plan: - Pt is asymptomatic and CHADSVASc=0. Discussed at length with pt and regarding low risk of stroke given lack of risk factors and since he is asymptomatic,rate controlled and currently undergoing work up for ALIZE, will not atempt to cardiovert due to poor success rates with untreated ALIZE. - WIll stop Eliquis and start low dose ASA. Discussed if CHADSVASc becomes 2 or greater, then will restart anticoagulation. - Sleep study pending. Encouraged adherence to CPAP if required. - Follow up in 4 months. 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 [employer] Other 11-10-2023 Evaluation note* Encounter Date Diagnosis [...] Cardiology for further evaluation and treatment. Discussed sabianism of NSR. Discussed briefly chronotropic incompetence Dec, [...] [BMI ] 31.0-31.9, adult (ICD-10 - Z68.31) [employer] Other 11-10-2023 Evaluation note* Encounter Date Diagnosis [...] Cardiology for further evaluation and treatment. Discussed sabianism of NSR. Dec, Pure hypercholestero lemia (ICD-10 [...] [BMI ] 31.0-31.9, adult (ICD-10 - Z68.31) [employer] Other 11-08-2023 Evaluation note* Encounter Date Diagnosis Assessment Notes Treatment Notes Treatment Clinical Notes Dec, Persistent atrial fibrillation (ICD-10 - I48.19) ECHO: LVEF 60 to 65%, RV normal, LVH, ELVIRA, mild AA dilatation 4.0cm - 12/2022 [employer] Other 11-02-2023 Evaluation note* Encounter Date Diagnosis Assessment Notes Treatment Notes Treatment Clinical Notes Dec, Persistent atrial fibrillation (ICD-10 - I48.19) [employer] Other 10-23-2023 Evaluation note* Encounter Date Diagnosis [...] (ICD-10 - Z12.5) Yearly EUSEBIO and PSA [employer] Other 09-29-2023 Evaluation note* Encounter Date Diagnosis Assessment Notes Treatment Notes Treatment Clinical Notes Oct, Wellness examination (ICD-10 - Z00.00) [facility] [employer] Other 08-04-2023 Evaluation note* Encounter Date Diagnosis Assessment Notes Treatment Notes Treatment Clinical Notes Sep, Seasonal allergic rhinitis, unspecified trigger (ICD-10 - J30.2) [employer] Other 11-15-2022 NotePROCEDURE: XR HIP RT 2 3V WO PELVIS COMPARISON: None. HISTORY: Contusion of right hip region FINDINGS: BONES:No acute fracture or dislocation. Minimal degenerative change with marginal osteophyte formation along the superior acetabulum SOFT TISSUES:Negative. No visible soft tissue swelling. EFFUSION:None visible. OTHER: Negative. IMPRESSION: Minimal degenerative change Electronically authenticated by: DEMETRIO BENAVIDEZ Date: 2021-12-30 07:55[facility] noteNo InformationNortConemaugh [facility] [employer] Other History and physical note Author Sean Garcia [facility] Note Date/Time March 15, 2024 1 :23pm [facility] [address] [place] [address] Gastroenterology H&P Signed Patient: George Castillo MR#: [id number] : 1960 Acct:[id number] Age/Sex: 64 / M Adm Date: 5 Loc: Room: Type: [facility] Attending Dr: Sean Garcia MD Copies to: DO Sean Delgadillo MD~ Date of Service: 03/15/2024 HISTORY & PHYSICAL: Patient's history with special attention to the cardiovascular, pulmonary systems and the current problem was reviewed with the patient immediately prior to the procedure. Present medications and doses reviewed in the EMR. Allergies and pertinent laboratory tests were also reviewedat this time in the EMR. The physical examination, as below, was then performed. Indication, assessment and HPI: 64-year-old man with history of colonic polyps and family history of colon cancer (2 grandparents) here for surveillance colonoscopy PHYSICAL EXAMINATION General appearance: NAD Skin: No jaundice Head: NC/AT Eyes: Anicteric Neck: Supple Lungs: Normal respiratory effort, no use of accessory muscles Abdomen: nondistended Neuro: Ox3. REVIEW OF SYSTEMS Constitutional: Denies malaise, fevers Cardiovascular: Denies chest pain, palpitations Respiratory: Denies shortness of breath, wheezing Gastrointestinal: As per HPI Genitourinary: Denies dysuria, polyuria Musculoskeletal: Denies joint swelling, joint stiffness Neurological: Denies confusion, numbness, tingling Endocrine: Denies fatigue Written informed consent obtained from the patient. Risks (including but not limited to perforation, infection, bloating, bleeding, need for emergent surgeryand loss of life), benefits and alternatives explained and questions answered. The patient verbalized understanding. Based on history patient is an appropriate candidate for the procedure. Sean Garcia M.D. Documented By: Sean Garcia MD 03/15/24 1308 Signed By: <Electronically signed by Sean Garcia MD> 03/15/24 1638 [facility] Work Phone: [facility] general Narrative - Reported* Type Description Date Surgical History Problem Title : CHOL ECYSTECTOMY, LAPAROSCOPIC, USING MULTIPLE PORTS (37577), Problem Status : Active, Surgical History Problem Title : COLO NOSCOPY (98925), Problem Comment : Tubular Adenoma, Problem Status : Active, Surgical History Problem Title : past surgical history reviewed, Problem Description : past surgical history reviewed, Problem Comment : reviewed - no changes required, Problem Status : Resolved, Surgical History Problem Title : surg ical procedures, hx of, Problem Description : surgical procedures, hx of, Problem Comment : Colonoscopy 2013 Tonsillectomy B/L Herniorrhaphy Lymph Node Excison neck, Problem Status : Active, Surgical History Problem Title : surg ical procedures, hx of, Problem Description : surgical procedures, hx of, Problem Comment : Colonoscopy 2012, Problem Status : Resolved, [employer] Other [facility] general Narrative - Reported* Type Description Date [...] Tubular Adenoma Hospitalization History see surgical hx [employer] Other [facility] general Narrative - Reported* Type Description Date [...] Tubular Adenoma Hospitalization History see surgical hx [employer] Other History general Narrative - Reported* Type Description Date Medical History Acute pain of right hip Medical History Lumbar strain Medical History Benign prostatic hyp erplasia with lower urinary tract symptoms Medical History Nocturnal leg cramps Medical History Pure hypercholesterolemia Medical History Palpitations Medical History Lumbar spondylosis Medical History Hyperglycemia Medical History ALIZE Medical History hyperlipidemia Medical History Atrial Fibrillation Surgical History CHOLECYSTECTOMY, LAPAROSCOPIC, USING MULTIPLE PORTS Surgical History COLONOSCOPY Surgical History Tonsillectomy B/L Herniorrhaphy Lymph Node Excison neck, Surgical History Tubular Adenoma/colon polyp Hospitalization History see surgical hx [employer] Other Reason for referral (narrative)* Reason Referral for new ons et atrial fibrillation Diagnosis 1 Persistent atrial fi brillation (I48.19) Referral Organization [facility] Referring Provider First Name Yvon Referring Provider Last Name Rafael Referring Provider Specialty Internal Me dicine Referred Organization [facility] Referred Provider Boy Morgan [place] Referred Provider Specialty Cardiology Referral Priority Routine [...] and should be included in this referral [employer] Other Summary Purpose Family History No Family History Records Found Relationship Condition Age at Onset Recorded Date/T regina father Hypertension Unknown Heart disease Unknown grandparent Malignant neoplasm of colon Unknown mother Parkinson's disease Unknown brother Hypertension Unknown Advance Directives No Advanced Directives Records Found Advance Directive Response Recorded Date/ Time Advance Directives No November 24, 2018 2:34pm Chief Complaint and Reason for Visit Chief Complaint Admit Date 6 Months December 31, 2023 9:04am Reason for Visit Admit Date ALIZE (obstructive sleep apnea) December 162023 9:04am Persistent atrial fibrillation December 31, 2023 9:04am Hyperlipidemia December 31, 2023 9:04am Chief Complaint Admit Date I48.19 - Other persistent atrial fibrill ation December 31, 2023 9:00am 6 Months December 31, 2023 9:04am cough for couple weeks February 22, 2024 10:07am HX OF COLON POLYPS/ FAM HX OF COLON CANC ER March 15, 2024 11:56am HX OF COLON POLYPS/ FAM HX OF COLON CANC ER March 15, 2024 1:08pm Reason for Visit Admit Date ALIZE (obstructive sleep apnea) December 162023 9:04am Persistent atrial fibrillation December 31, 2023 9:04am Hyperlipidemia December 31, 2023 9:04am Acute bronchitis due to other specified organisms February 22, 2024 10:07am Persistent atrial fibrillation February 212024 10:07am Additional Source Comments (unrecognized sect ion and content) No Status Records FoundNo Status Records FoundNo Status Records FoundNo Status Records Found INFORMATION SOURCE (unrecogn ized section and content) DATE CREATED AUTHOR 11/02/2020 [facility] DATE CREATED AUTHOR AUTHOR'S ORGANIZ ATION 02/06/2022 [facility] pital DATE CREATED AUTHOR AUTHOR'S ORGANIZ ATION 03/11/2022 [facility] dical Specialist DATE CREATED AUTHOR AUTHOR'S ORGANIZ ATION 03/25/2024 [facility] ysician Group REASON FOR VISIT (unrecogniz ed section and content) [facility] dersWellhind general hospitalNo Informationadditional instructionsNo Informationdiscuss test [id number] COVID +No Informationdiscuss test resultsERRORREFERRED BY DR. HALL FOR PERSISTENT ATRIAL FIBRILLATIONCARDIO CONSULT NOTE Care Teams (unrecognized sec tion and content) Team Status: Active Member Role Status Dates Leda Morrell MD [employer] Active Yvon Hall DO Primary Care Provider Active Team Status: Inactive Member Role Status Dates Yvon Hall DO Primary Care Provider Active Start: December 31, 2023 End: December 31, 2023 Leda Morrell MD Attending Provider Active Sta rt: December 31, 2023 End: December 31, 2023 Team Status: Inactive Member Role Status Dates Yvon Hall DO Primary Care Provide r, Attending Provider Active Start: February 22, 2024 End: February 22, 2024 Team Status: Inactive Member Role Status Dates Yvon Hall DO Primary Care Provider Active Start: March 15, 2024 End: March 15, 2024 Sean Garcia MD Attending Provider Active Start: March 15, 2024 End: March 15, 2024 Team Status: Active Member Role Status Dates Yvon Hall DO Primary Care Provider Active Start: March 15, 2024 Sean Garcia MD Attending Provider, Other Provider Active Start: March 15, 2024 Goals (unrecognized section and content) Goals may be documented in a n alternate section FOR RECORDS PERTAINING TO PATIENTS WHO ARE [...] BE BASED ON THE PRIMARY CLINICAL RECORDS. [facility]. provides no warranty or guarantee of the accuracy or completeness of information in this document.
[2024-05-08 06:52] LABS: Basophils Absolute Auto 0.1 10^3/uL (0.0-0.1); Basophils Percent Auto 0.9 % (0.2-2.0); Eosinophils Absolute Auto 0.2 10^3/uL (0.0-0.7); Eosinophils Percent Auto 2.9 % (0.9-7.0); Hematocrit 50.6 % (42.0-54.0); Hemoglobin 17.2 g/dL (14.0-18.0); Immature Granulocytes Abs Auto 0.03 10^3/uL (0.00-0.03); Immature Granulocytes Pct Auto 0.5 % (0.0-0.5); Lymphocytes Percent Auto 17.1 % (20.5-60.0); Mean Corpuscular Hemoglobin 29.9 pg (25.9-34.0); Mean Corpuscular Volume 87.8 fL (80.0-94.0); Mean Platelet Volume 10.5 fL (9.5-13.5); Monocytes Absolute Auto 0.4 10^3/uL (0.3-0.8); Monocytes Percent Auto 7.7 % (1.7-12.0); Neutrophils Percent Auto 70.9 % (43.0-75.0); Platelet Count 198 10^3/uL (150-450); Red Blood Count 5.76 10^6/uL (4.70-6.10); Red Cell Distribution Width 13.5 % (11.0-15.0); White Blood Count 5.6 10^3/uL (4.0-11.0)
[2024-05-08 07:31] LABS: Estimated Average Glucose 143 mg/dL; Glycohemoglobin A1C 6.6 % (4.5-6.2)
[2024-05-08 07:34] LABS: Microalbumin Urine Random <1.3 mg/dL (<=30.0)
[2024-05-08 07:37] LABS: Alanine Aminotransferase 25 U/L (16-63); Albumin Globulin Ratio 1.3; Albumin Level 3.9 g/dL (3.4-5.0); Alkaline Phosphatase 95 U/L (46-116); Anion Gap 11.7; Aspartate Amino Transferase 17 U/L (15-37); BUN Creatinine Ratio 14.9; Bilirubin Total 0.6 mg/dL (0.2-1.0); Calcium 8.9 mg/dL (8.5-10.1); Carbon Dioxide 31.4 mmol/L (21.0-32.0); Chloride 106 mmol/L (98-107); Chol HDL Ratio 5.4; Cholesterol 201 mg/dL (<=200); Estimated GFR (African America >60 (>=60 mL/min/1.73m^2); Estimated GFR (Non-African Ame >60 (>=60 mL/min/1.73m^2); Glucose 130 mg/dL (74-106); HDL Cholesterol 37 mg/dL (40-60); Potassium 4.1 mmol/L (3.5-5.1); Sodium 145 mmol/L (136-145); Total Protein 6.9 g/dL (6.4-8.2); Triglycerides 121 mg/dL (<=150); VLDL CHOLESTEROL 24.2 mg/dL
[2024-05-08 08:30] LABS: Prostate Specific Antigen Scrn 2.82 ng/mL (<=4.00)
== END 2024-05-08 06:33 | disposition home or self-care (01) ==
LOC: LAB 06:32
PROVIDERS: PCP Internal Medicine; Visit Provider Internal Medicine
DX: Z00.00 Encounter for general adult medical examination without abnormal findings (principal); Z12.5 Encounter for screening for malignant neoplasm of prostate
CPT/HCPCS: 36415; 80053; 80061; 82043; 83036; 85025; G0103

== ENCOUNTER 2024-07-19 06:47 | Outpatient (OUT) | payer OTHER, SELFPAY ==
--- OUTSIDE RECORDS SUMMARY | 2024-07-19 06:50 | XMS_ITS | CCD ---
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 Role Phone DR YVON HALL Attending Unavailable BALL, DR RODRIGUEZ Consulting Unavailable BALL, DR RODRIGUEZ Primary Care Unavailable BALL, DR RODRIGUEZ Admitting Unavailable WEST, DR DEMETRIO Tejada Consulting Unavailable RAFAEL, DR RODRIGUEZ Consulting Unavailable BALL, DR RODRIGUEZ Primary Care Unavailable BALL, DR RODRIGUEZ Admitting Unavailable BALL, DR RODRIGUEZ Attending Unavailable BALL, DR RODRIGUEZ Consulting Unavailable BALL, DR RODRIGUEZ Primary Care Unavailable BALL, DR RODRIGUEZ Admitting Unavailable BALL, DR RODRIGUEZ Attending Unavailable WEST, DR DEMETRIO Tejada Consulting Unavailable RAFAEL, DR RODRIGUEZ Primary Care Unavailable BALL, DR RODRIGUEZ Admitting Unavailable RAFAEL, DR RODRIGUEZ Attending Unavailable Yvon Hall Unavailable Leda Morrell Unavailable Yvno Hall DO Primary Care Provider Leda Morerll MD Attending Provider Sean Garcia MD Attending Provider [phone] Sean Garcia Admitting Unavailable Yvon Hall Primary Care Unavailable Sean Garcia Attending Unavailable Leda Morrell Attending Unavailable Leda Morrell Admitting Unavailable Yvon Hall Primary Care Unavailable Yvon Hall DO Primary Care Provider [phone] Sean Garcia MD Attending Provider Medications Current Medications Medication Drug Class(es) Dates Sig (Normalized) Sig (Original) apixaban 5 mg oral tablet (5 sources) Factor Xa Inhibitor take 1 tablet by mouth every twelve hours Eliquis 5 MG 1 tablet Orally Twice a day Active [place] (No Known Home Meds) (2 sources) Start: 03-02-2024 [place] (No Known Home Meds) Active March 02, 2024 1:00am Start: 03-02-2024 [place] (No Kn own Home Meds) Active March 02, 2024 12:00am rosuvastatin calcium 10 mg oral tablet (1 source) HMG-CoA Reductase Inhibitor Start: 06-27-2024 take 1 tablet by mouth once daily Rosuvastatin (Crestor) 10 mg tablet Active 10 MG PO Daily 90 June 27, 2024 12:00am {20 (nirmatrelvir 150 MG Oral Tablet) / 10 (ritonavir 100 MG Oral Tablet) } Pack [Paxlovid 5-Day] (2 sources) Start: 01-01-2023 Paxlovid (300/ 100) 20 x 150 MG & 10 x 100MG as directed Orally bid for 5 days Dec, Active Completed/Discontinued Medications Medication Drug Class(es) Dates Sig (Normalized) Sig (Original) aspirin 81 mg delayed release oral tablet (7 sources) Platelet Aggregation Inhibitor, Nonsteroidal Anti-inflammatory Drug Start: 07-15-2023 End: 12-31-2023 take 1 tablet by mouth once daily Aspirin 81 mg tablet,delayed release (DR/EC) Discontinued 81 MG PO Daily July 15, 2023 12:00am December 31, 2023 10:04am Start: 03-08-2023 take 1 tablet by gay th every twenty-four hours Aspirin Adult Low Dose 81 MG 1 tablet Orally Once a day for 30 days Feb, Active atorvastatin 20 mg oral tablet (19 sources) HMG-CoA Reductase Inhibitor Start: 05-09-2024 End: 06-27-2024 take 1 tablet by mouth once daily in the evening Atorvastatin 20 mg tablet Discontinued 20 MG PO Every evening May 09, 2024 12:00am June 27, 2024 8:38am Start: 07-15-2023 End: 07-16-2023 take 1 tablet by mouth once daily Atorvastatin 40 mg tablet Discontinued 40 MG PO Daily July 16, 2023 9:06am July 16, 2023 9:06am [employer] tablet Orally Once a day; Note: Source Status: Taking; Refills: 5; Provider: Rafael Dawkins Start: 12-27-2022 take 1 tablet by gay th every twenty-four hours Atorvastatin Calcium 40 MG 1 tablet Orally Once a day for 30 days Dec, Active azithromycin 250 mg oral tablet (8 sources) Macrolide Antimicrobial Start: 02-22-2024 End: 03-02-2024 Azithromycin 250 mg tablet Discontinued 250 MG PO .COMPLEX 6 5 February 22, 2024 12:29pm March 02, 2024 12:40pm 2 tabs on first day followed by [...] times daily for 0 *Pick strength-form from efectivox for eRX* Jan, Not-Taking/PRN paxlovid (300/100) 20 [...] Problem Date Documented Date Episodic/Chronic Acute bronchitis (7 sources) Acute infective bronchitis; Translations: [Acute bronchitis due to other specified organisms] 02-22-2024 Episodic Biliary tract disease (2 sources) Cholelithiasis AND cholecystitis without obstruction; Translations: [Calculus of gallbladder with chronic cholecystitis without obstruction] Episodic Cardiac dysrhythmias (20 sources) Persistent atrial fibrillation; Translations: [Other persistent [...] [Unilateral primary osteoarthritis, right hip] Chronic Other aftercare (2 sources) Drug therapy finding; Translations: [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] 05-09-2024 Episodic Other connective tissue disease (13 sources) Cramp in lower leg associated with rest; Translations: [Sleep related leg cramps] Chronic Other connective tissue disease (1 source) Sleep related leg cramps Chronic Other connective tissue disease (2 sources) Other symptoms and signs involving the nervous system Episodic Other ear and sense organ disorders (2 sources) Decreased hearing ; Translations: [Unspecified hearing loss, bilateral] 05-09-2024 Chronic Other ear and sense organ disorders (2 sources) Tinnitus; Translations: [Tinnitus, unspecified ear] 05-09-2024 Episodic Other male genital disorders (2 sources) [...] nutritional; endocrine; and metabolic disorders (7 sources) Obesity; Translations: [Obesity, unspecified] 08-04-2023 Chronic [...] mass index (BMI) 31.0-31.9, adult Chronic Other nutritional; endocrine; and metabolic disorders (3 sources) Obesity, unspecified; Translations: [Obesity, unspecified] 05-09-2024 Chronic Other screening for suspected conditions (not mental disorders or infectious disease) (13 sources) Encounter for screening for malignant neoplasm of prostate; Translations: [Encounter for screening for diseases of the blood and blood-forming organs and certain disorders involving the immune mechanism] Onset: 10-11-2018 Episodic Comment on above: Problem [facility]: 04.22, 3.11/2022, .82 04/2024 Other upper respiratory disease (2 sources) Allergic [...] unspecified] Onset: 05-13-2016 Episodic Residual codes; unclassified (10 sources) Obstructive sleep apnea syndrome; Translations: [Obstructive sleep apnea (adult) (pediatric)] 07-16-2023 Chronic Comment on above: CPAP Residual codes; unclassified (7 sources) Obstructive sleep apnea (adult) (pediatric); Translations: [...] Test Name Value Interpretation Reference Range Facility Basophils Auto (Bld) [#/Vol] on 05-08-2024 Basophils (Bld) [#/Vol] Automated basophil count 0.0-0.1 [facility] Basophils/100 WBC Auto (Bld) on 05-08-2024 Basophils/100 WBC (Bld) Automated basophil % 0.2-2.0 [facility] Cholesterol in LDL Calc [Mas s/Vol]on 05-08-2024 Cholesterol in LDL [Mass/Vol] Cholesterol in LDL [Mass/volume] in Serum or Plasma by calculation [facility] Comment on above: <100 mg/dl [id number] 0-129 mg/dl NEAR OR ABOVE [id number] mg/dl BORDERLINE [id number] mg/dl HIGH>190 mg/dl VERY HIGH Cholesterol in VLDL Calc [Ma ss/Vol]on 05-08-2024 Cholesterol in VLDL [Mass/Vol] Cholesterol in VLDL [Mass/volume] in Serum or Plasma by calculation [facility] Eosinophils/100 WBC Auto (Bl d)on 05-08-2024 Eosinophils/100 WBC (Bld) Automated eosinophil % 0.9-7.0 [facility] Erythrocyte distribution wid th Auto (RBC) [Ratio]on 05-08-2024 Erythrocyte distribution width (RBC) [Ratio] Erythrocyte distribution width [Ratio] by Automated count 11.0-15.0 [facility] Estimated glomerular filtrat ion rate (GFR) non- Americanon 05-08-2024 GFR/1.73 sq M.predicted among non-blacks MDRD (S/P/Bld) [Vol rate/Area] Estimated glomerular filtration rate (GFR) non- >=60 mL/min/1.73m 2 [facility] Globulin Calc (S) [Mass/Vol] on 05-08-2024 Globulin (S) [Mass/Vol] Serum globulin measurement by calculation (mass/volume) [facility] Glucose mean value [Mass/vol ume] in Blood Estimated from glycated hemoglobinon 05-08-2024 Average glucose Estimated from glycated hemoglobin (Bld) [Mass/Vol] Glucose mean value [Mass/volume] in Blood Estimated from glycated hemoglobin [facility] Hematocrit Auto (Bld) [Volum e fraction]on 05-08-2024 Hematocrit (Bld) [Volume fraction] Hematocrit [Volume Fraction] of Blood by Automated count 42.0-54.0 [facility] Hemoglobin A1c percentageon 05-08-2024 HbA1c (Bld) [Mass fraction] Hemoglobin A1c percentage High 4.5-6.2 [facility] Comment on above: ADA RECOMMENDED LIMI T 4.0 - 6.0ADA THERAPEUTIC TARGET < 7.0ACTION SUGGESTED> 7.0 Hemoglobin [Mass/volume] in Bloodon 05-08-2024 Hemoglobin (Bld) [Mass/Vol] Hemoglobin [Mass/volume] in Blood 14.0-18.0 [facility] Laboratory - Chemistry and C hemistry - challengeon 05-08-2024 Albumin [Mass/Vol] 3.9 g/dL 3.4-5.0 [facility] ALP [Catalytic activity/Vol] 95 U/L 46-116 [facility] ALT [Catalytic activity/Vol] 25 U/L 16-63 [facility] AST [Catalytic activity/Vol] 17 U/L 15-37 [facility] Bilirubin [Mass/Vol] 0.6 mg/dL 0.2-1.0 [facility] Calcium [Mass/Vol] 8.9 mg/dL 8.5-10.1 [facility] Chloride [Moles/Vol] 106 mmol/L 98-107 [facility] Cholesterol [Mass/Vol] 201 mg/dL High <=200 [facility] Cholesterol in HDL [Mass/Vol] 37 mg/dL Low 40-60 [facility] Comment on above: > or =60 mg/dl - LOW CARDIOVASCULAR RISK<40 mg/dl - HIGH CARDIOVASCULAR RISK CO2 [Moles/Vol] 31.4 mmol/L 21.0-32.0 [facility] Creatinine [Mass/Vol] 1.01 mg/dL 0.70-1.30 [facility] GFR/1.73 sq M.predicted MDRD (S/P/Bld) [Vol rate/Area] mL/min/{1.73_m2} >=60 mL/min/1.73m 2 [facility] Glucose [Mass/Vol] 130 mg/dL High 74-106 [facility] Potassium [Moles/Vol] 4.1 mmol/L 3.5-5.1 [facility] Protein [Mass/Vol] 6.9 g/dL 6.4-8.2 [facility] Sodium [Moles/Vol] 145 mmol/L 136-145 [facility] Triglyceride [Mass/Vol] 121 mg/dL <=150 [facility] Urea nitrogen [Mass/Vol] 15.0 mg/dL 7.0-18.0 [facility] Urea nitrogen/Creatinine [Mass ratio] 14.9 mg/mg [facility] Laboratory - Hematology and Cell countson 05-08-2024 Immature granulocytes/100 WBC (Bld) 0.5 % 0.0-0.5 [facility] Leukocytes [#/volume] correc debbi for nucleated erythrocytes in Blood by Automated counon 05-08-2024 WBC corrected for nucl RBC Auto (Bld) [#/Vol] Leukocytes [#/volume] corrected for nucleated erythrocytes in Blood by Automated coun 4.0-11.0 [facility] Lymphocytes Auto (Bld) [#/Vo l]on 05-08-2024 Lymphocytes (Bld) [#/Vol] Lymphocytes [#/volume] in Blood by Automated count Low 1.2-3.8 [facility] Lymphocytes/100 WBC Auto (Bl d)on 05-08-2024 Lymphocytes/100 WBC (Bld) Lymphocytes/100 leukocytes in Blood by Automated count Low 20.5-60.0 [facility] MCH Auto (RBC) [Entitic mass ]on 05-08-2024 MCH (RBC) [Entitic mass] MCH [Entitic mass] by Automated count 25.9-34.0 [facility] MCHC Auto (RBC) [Mass/Vol]on 05-08-2024 MCHC (RBC) [Mass/Vol] MCHC [Mass/volume] by Automated count 29.9-35.2 [facility] MCV Auto (RBC) [Entitic vol] on 05-08-2024 MCV (RBC) [Entitic vol] MCV [Entitic volume] by Automated count 80.0-94.0 [facility] Microalbumin [Mass/volume] i n Urineon 05-08-2024 Albumin DL <= 20 mg/L (U) [Mass/Vol] Microalbumin [Mass/volume] in Urine <=30.0 [facility] Monocytes Auto (Bld) [#/Vol] on 05-08-2024 Monocytes (Bld) [#/Vol] Automated blood monocyte count 0.3-0.8 [facility] Monocytes/100 WBC Auto (Bld) on 05-08-2024 Monocytes/100 WBC (Bld) Automated monocyte % 1.7-12.0 [facility] Neutrophils Auto (Bld) [#/Vo l]on 05-08-2024 Neutrophils (Bld) [#/Vol] Neutrophils [#/volume] in Blood by Automated count 1.4-6.5 [facility] Neutrophils/100 WBC Auto (Bl d)on 05-08-2024 Neutrophils/100 WBC (Bld) Automated neutrophil % 43.0-75.0 [facility] No Panel Informationon 05-08 Eosinophils # (Auto) 0.2 10 3/uL 0.0-0.7 [facility] Immature Granulocyte # (Auto) 0.03 10 3/uL 0.00-0.03 [facility] Prostate Specific Antigen Screen 2.82 ng/mL <=4.00 [facility] Platelet mean volume Auto (B ld) [Entitic vol]on 05-08-2024 Platelet mean volume (Bld) [Entitic vol] Platelet mean volume [Entitic volume] in Blood by Automated count 9.5-13.5 [facility] Platelets Auto (Bld) [#/Vol] on 05-08-2024 Platelets (Bld) [#/Vol] Platelets [#/volume] in Blood by Automated count 150-450 [facility] RBC Auto (Bld) [#/Vol]on RBC (Bld) [#/Vol] Erythrocytes [#/volume] in Blood by Automated count 4.70-6.10 [facility] Serum or plasma albumin/glob ulin mass ratioon 05-08-2024 Albumin/Globulin [Mass ratio] Serum or plasma albumin/globulin mass ratio [facility] Serum or plasma anion gap de terminationon 05-08-2024 Anion gap [Moles/Vol] Serum or plasma anion gap determination [facility] Serum or plasma total choles terol/high density lipoprotein (HDL) cholesterol mass virginie 05-08-2024 Cholesterol.total/Ch olesterol in HDL [Mass ratio] Serum or plasma total cholesterol/high density lipoprotein (HDL) cholesterol mass rat [facility] Comment on above: 3.3 - 4.4 LOW RISK4. 4 - 7.1 AVERAGE RISK7.1 - 11.0 MODERATE RISK>11.0 HIGH RISK Bob 03-15-2024 L -- ---- Specimen: [id number] Received: 03/15/24 Status: KAYLEN Solano Num: [id number] Spec Type: Surgical Subm Dr: Sean Garcia MD Tissues: A Colon Biopsy (COL POLYP ASC') B Colon Biopsy (TRANSV COL NIMA) Procedures: HE/Vonda, Gross/Micro L4/2 ---- Age/ Patient Sex Location Account Attending Physician ---- ManuelGeorge Chan 64/M [id number] Sean Garcia MD ---- SPEC NUM: [id number] RECD: 03/15/24 STATUS: KAYLEN SOLANO NUM: [id number] NADINE: 03/15/24 [facility] DR: Sean Garcia MD ENTERED: 03/15/[address] [facility] [address]: WOODY TYPE: Surgical DEPT: S ENTERED BY: [id number] RECV BY: [id number] ORDERED: HE/4, Gross/Micro L4/2 ORDERED: HE/4, Gross/Micro [...] submitted in a single cassette. (1, ns, [id number] 86A) Part B is received in formalin labeled with the patients name, date of , and transverse polyp is a brooke-amaral, focally erythematous, friable, 0.3 cm in greatest dimension polypoid fragment. The specimen is entirely submitted in a single cassette. (1, ns, [id number] B) JG ---- Specimen: [id number] Received: 03/15/24 Status: KAYLEN Solano Num: [id number] Spec Type: Surgical Subm Dr: Sean Garcia MD Tissues: A Colon Biopsy (COL POLYP ASC') B Colon Biopsy (TRANSV COL NIMA) Procedures: DAYNE/Vonda, Phyllis/Micro L4/2 ---- Patient: George Castillo [id number] (Continued) ---- Specimen: [id number] Received: 03/15/24 (Continued) Signed (signature on file) Teofilo Lam MD 03/16/24 1034 ---- Specimen: [id number] Received: 03/15/24 Status: KAYLEN Solano Num: [id number] Spec Type: Surgical Subm Dr: Sean Garcia MD Tissues: A Colon Biopsy (COL POLYP ASC') B Colon Biopsy (TRANSV COL NIMA) Procedures: HE/4, Gross/Micro L4/2 ---- Patient: George Castillo [id number] (Continued) ---- Specimen: [id number] Received: 03/15/24 (Continued) Microscopic Description A B: Microscopic examination is performed. CPT Codes 55951 x2 ---- ---- Specimen: [id number] Received: 03/15/24 Status: KAYLEN Solano Num: [id number] Spec Type: Surgical Subm Dr: Sean Garcia MD Tissues: A Colon Biopsy (COL POLYP ASC') B Colon Biopsy (TRANSV COL NIMA) Procedures: HE/4, Gross/Micro L4/2 ---- Patient: George Castillo [id number] (Continued) ---- Signed (signature on file) Teofilo Lam MD 03/16/24 1034 Normal [facility] FPG ECG *CARDIOLOGY ONLY*on 12-31-2023 FPG ECG *CARDIOLOGY ONLY* [facility] [place] [address] Electrocardiograph Report Signed Patient: George Castillo MR#: [id number] : 1960 Acct:[id number] Age/Sex: 63 / M ADM Date: 12/31/23 Loc: EKGCARDIO Room: Type: [facility] Attending Dr: Leda Morrell MD Ordering Provider: [...] previous ECGs available Confirmed by Boy Morgan ([id number]) on 01/03/2024 11:11:21 AM Referred By: Electronically Signed By: Boy Morgan Transcribed By: MUS Signed By Boy Morgan MD 01/03/24 1111 Normal [facility] MRI Lumbar Spine w/oon 03-10 MRI Lumbar Spine w/o HISTORY: Low back p ain radiating to right leg. 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 Derrek Miramontes Basophils/100 WBC (Bld) 0.7 % Normal 0.2-2.0 [facility] Comment on above: Performed By: #### C BC #### [facility] [address] [place] [address] Dr. Derrek Miramontes EO # 0.1 103/ul Normal 0.0-0.7 [facility] Comment on above: Performed By: #### C BC #### [facility] [address] [place] [address] Dr. Derrek Miramontes Eosinophils/100 WBC (Bld) 2.0 % Normal 0.9-7.0 [facility] Comment on above: Performed By: #### C BC #### [facility] [address] [place] [address] Dr. Derrek Miramontes Erythrocyte distribution width (RBC) [Ratio] 14.2 % Normal 11.0-15.0 [facility] Comment on above: Performed By: #### C BC #### [facility] [address] [place] [address] Dr. Derrek Miramontes Hematocrit (Bld) [Volume fraction] 46.7 % Normal 42.0-54.0 [facility] Comment on above: Performed By: #### C BC #### [facility] [address] [place] [address] Dr. Derrek Miramontes Hemoglobin (Bld) [Mass/Vol] 15.3 g/dL Normal 14.0-18.0 [facility] Comment on above: Performed By: #### C BC #### [facility] [address] [place] [address] Dr. Derrek Miramontes IG # 0.07 10e3/ul Critically high 0.00-0.03 [facility] Comment on above: Performed By: #### C BC #### [facility] [address] [place] [address] Dr. Derrek Miramontes IG % 1.2 % Critically high 0.0-0.5 [facility] Comment on above: Performed By: #### C BC #### [facility] [address] [place] [address] Dr. Derrek Miramontes LYMPH # 1.0 103/ul Critically low 1.2-3.8 [facility] Comment on above: Performed By: #### C BC #### [facility] [address] [place] [address] Dr. Derrek Miramontes Lymphocytes/100 WBC (Bld) 16.3 % Critically low 20.5-60.0 [facility] Comment on above: Performed By: #### C BC #### [facility] [address] [place] [address] Dr. Derrek Miramotnes MANUAL DIFF REQ NO Normal [facility] Comment on above: Performed By: #### C BC #### [facility] [address] [place] [address] Dr. Derrek Miramontes MCH (RBC) [Entitic mass] 29.5 pg Normal 25.9-34.0 [facility] Comment on above: Performed By: #### C BC #### [facility] [address] [place] [address] Dr. Derrek Miramontes MCHC (RBC) [Mass/Vol] 32.8 g/dL Normal 29.9-35.2 [facility] Comment on above: Performed By: #### C BC #### [facility] [address] [place] [address] Dr. Derrek Miramontes MCV (RBC) [Entitic vol] 90.2 fL Normal 80.0-94.0 [facility] Comment on above: Performed By: #### C BC #### [facility] [address] [place] [address] Dr. Derrek Miramontes MONO # 0.4 103/ul Normal 0.3-0.8 [facility] Comment on above: Performed By: #### C BC #### [facility] [address] [place] [address] Dr. Derrek Miramontes Monocytes/100 WBC (Bld) 7.1 % Normal 1.7-12.0 [facility] Comment on above: Performed By: #### C BC #### [facility] [address] [place] [address] Dr. Derrek Miramontes NEUT # 4.3 103/ul Normal 1.4-6.5 [facility] Comment on above: Performed By: #### C BC #### [facility] [address] [place] [address] Dr. Derrek Miramontes Neutrophils/100 WBC (Bld) 72.7 % Normal 43.0-75.0 [facility] Comment on above: Performed By: #### C BC #### [facility] [address] [place] [address] Dr. Derrek Miramontes Platelet mean volume (Bld) [Entitic vol] 10.0 fL Normal 9.5-13.5 [facility] Comment on above: Performed By: #### C BC #### [facility] [address] [place] [address] Dr. Derrek Miramontes PLT 186 103/ul Normal 150-450 [facility] Comment on above: Performed By: #### C BC #### [facility] [address] [place] [address] Dr. Derrek Miramontes RBC 5.18 106/ul Normal 4.70-6.10 [facility] Comment on above: Performed By: #### C BC #### [facility] [address] [place] [address] Dr. Derrek Miramontes WBC 5.9 103/ul Normal 4.0-11.0 [facility] Comment on above: Performed By: #### C BC #### [facility] [address] [address] [address] Derrek Miramontes LIPID PROFILEon 12-01-2021 CHOL-HDL RATIO NORM SEE BELOW Normal [facility] Comment on above: Result Comment: 3.3 - 4.4 LOW RISK 4.4 - 7.1 AVERAGE RISK 7.1 - 11.0 MODERATE RISK >11.0 HIGH RISK Performed By: #### C MP, LIPID #### [facility] [address] [address] [address] Derrek Miramontes Cholesterol [Mass/Vol] 198 mg/dL Normal <=200 [facility] Comment on above: Performed By: #### C MP, LIPID #### [facility] [address] [address] [address] Derrek Miramontes Cholesterol in HDL [Mass/Vol] 44 mg/dL Normal 40-60 [facility] Comment on above: Performed By: #### C MP, LIPID #### [facility] [address] [address] [address] Derrek Miramontes Cholesterol in LDL [Mass/Vol] 140.6 mg/dL Normal [facility] Comment on above: Performed By: #### C MP, LIPID #### [facility] [address] [address] [address] Derrek Miramontes Cholesterol.total/Ch olesterol in HDL [Mass ratio] 4.5 {ratio} Normal [facility] Comment on above: Performed By: #### C MP, LIPID #### [facility] [address] [address] [address] Derrek Miramontes HDL NORMAL > or = 60 mg/dl - LO W CARDIOVASCULAR RISK <40 mg/dl - HIGH CARDIOVASCULAR RISK Normal [facility] Comment on above: Performed By: #### C MP, LIPID #### [facility] [address] [address] [address] Derrek Miramontes LDL CALC NORMAL SEE BELOW Normal [facility] Comment on above: Result Comment: <100 mg/dl OPTIMAL 100 - 129 mg/dl NEAR OR ABOVE OPTIMAL 130 - 159 mg/dl BORDERLINE HIGH 160 - 189 mg/dl HIGH >190 mg/dl VERY HIGH Performed By: #### C MP, LIPID #### [facility] [address] [address] [address] Derrek Miramontes Triglyceride [Mass/Vol] 67 mg/dL Normal <=150 [facility] Comment on above: Performed By: #### C MP, LIPID #### [facility] [address] [address] [address] Derrek Miramontes VLDL CALC 13.4 mg/dL Normal [facility] Comment on above: Performed By: #### C MP, LIPID #### [facility] [address] [place] [address] Dr. Derrek Miramontes PROF 14(COMP METB)on 022 Albumin [Mass/Vol] 3.8 g/dL Normal 3.4-5.0 [facility] Comment on above: Performed By: #### C MP, LIPID #### [facility] [address] [place] [address] Dr. Derrek Miramontes Albumin/Globulin [Mass ratio] 1.4 {ratio} Normal [facility] Comment on above: Performed By: #### C MP, LIPID #### [facility] [address] [place] [address] Dr. Derrek Miramontes ALP [Catalytic activity/Vol] 79 U/L Normal 46-116 [facility] Comment on above: Performed By: #### C MP, LIPID #### [facility] [address] [place] [address] Dr. Derrek Miramontes ALT [Catalytic activity/Vol] 28 U/L Normal 16-63 [facility] Comment on above: Performed By: #### C MP, LIPID #### [facility] [address] [place] [address] Dr. Derrek Miramontes Anion gap [Moles/Vol] 7.2 mmol/L Normal [facility] Comment on above: Performed By: #### C MP, LIPID #### [facility] [address] [place] [address] Dr. Derrek Miramontes AST [Catalytic activity/Vol] 11 U/L Critically low 15-37 [facility] Comment on above: Performed By: #### C MP, LIPID #### [facility] [address] [address] [address] Derrek Miramontes Bilirubin [Mass/Vol] 0.5 mg/dL Normal 0.2-1.0 [facility] Comment on above: Performed By: #### C MP, LIPID #### [facility] [address] [address] [address] Derrek Miramontes Calcium [Mass/Vol] 8.8 mg/dL Normal 8.5-10.1 [facility] Comment on above: Performed By: #### C MP, LIPID #### [facility] [address] [address] [address] Derrek Miramontes Chloride [Moles/Vol] 104 mmol/L Normal 98-107 [facility] Comment on above: Performed By: #### C MP, LIPID #### [facility] [address] [place] [address] Dr. Derrek Miramontes CO2 [Moles/Vol] 34.1 mmol/L Critically high 21.0-32.0 [facility] Comment on above: Performed By: #### C MP, LIPID #### [facility] [address] [place] [address] Dr. Derrek Miramontes Creatinine [Mass/Vol] 0.91 mg/dL Normal 0.70-1.30 [facility] Comment on above: Performed By: #### C MP, LIPID #### [facility] [address] [place] [address] Dr. Derrek Miramontes EGFR-AF NIGERIEN >60 Normal >=60 [facility] Comment on above: Performed By: #### C MP, LIPID #### [facility] [address] [address] [address] Derrek Miramontes EGFR-NON AF NIGERIEN >60 Normal >=60 [facility] Comment on above: Performed By: #### C MP, LIPID #### [facility] [address] [place] [address] Dr. Derrek Miramontes Globulin (S) [Mass/Vol] 2.8 g/dL Normal [facility] Comment on above: Performed By: #### C MP, LIPID #### [facility] [address] [address] [address] Derrek Miramontes Glucose [Mass/Vol] 113 mg/dL Critically high 74-106 [facility] Comment on above: Performed By: #### C MP, LIPID #### [facility] [address] [address] [address] Derrek Miramontes Potassium [Moles/Vol] 4.3 mmol/L Normal 3.5-5.1 [facility] Comment on above: Performed By: #### C MP, LIPID #### [facility] [address] [address] [address] Derrek Miramontes Protein [Mass/Vol] 6.6 g/dL Normal 6.4-8.2 [facility] Comment on above: Performed By: #### C MP, LIPID #### [facility] [address] [address] [address] Derrek Miramontes Sodium [Moles/Vol] 141 mmol/L Normal 136-145 [facility] Comment on above: Performed By: #### C MP, LIPID #### [facility] [address] [address] [address] Derrek Miramontes Urea nitrogen [Mass/Vol] 18.0 mg/dL Normal 7.0-18.0 [facility] Comment on above: Performed By: #### C MP, LIPID #### [facility] [address] [address] [address] Derrek Miramontes Urea nitrogen/Creatinine [Mass ratio] 19.8 mg/mg Normal [facility] Comment on above: Performed By: #### C MP, LIPID #### [facility] [address] [address] [address] Derrek Miramontes Ambulatory Clinical Summaryo n 10-30-2020 Ambulatory Clinical Summary {[id number] Normal [facility] General Surgery Office/Clini c Noteon 10-30-2020 General Surgery Office/Clinic Note HPI Staff Lap zena 10/09/20 21 days p/o, no concerns History [...] Use:., 09/10/2020 Family History HTN: Father. Normal [facility] Comment on above: Result Comment: Elec tronically Signed By: NEIL BLAKE, Slava Linbr\Date and Time Signed: 10/30/20 13:18 EDT Provider Letteron 10-30-2020 Provider Letter October 30, 2020 To Whom It May Concern, Patient may return to work on 11/11/20 May Return to Work On:11/11/2020 Restrictions: None Comments: any questions please call the office Sincerely, Dr Slava Bourgeois [facility] Ambulatory Clinical Summaryo n 10-16-2020 Ambulatory Clinical Summary {[id number] [facility] General Surgery Office/Clini c Noteon 10-16-2020 General [...] Use:., 09/10/2020 Family History HTN: Father. Normal [facility] Comment on above: Result Comment: Elec tronically Signed By: NEIL BLAKE, Slava Collazo\Date and Time Signed: 10/16/20 17:28 EDT Provider Letteron 10-16-2020 Provider Letter October 16, 2020 GEORGE CASTILLO [address] [place] [address] GEORGE CASTILLO 1960 To Whom It May Concern, Please excuse above patient from work. 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 [facility] Operative Reporton Operative Report [id number] 0CD:127 [facility] Pathology Noteon 10-11-2020 Pathology Note [id number]:127 [facility] Lab Reportson 10-07-2020 Lab Reports [id number] 0CD:127 [facility] Provider Letter FTon 09-18 Provider Letter [facility] September 18, 2020 YVON HALL, [address] [place] [address] Re: GEORGE CASTILLO Date of : 1960 Thank you for your referral of George Castillo who was seen on consultation on September 10, 2020, for cholelithiasis. I have enclosed my consultation note for your review. I will be happy to follow George. Sincerely, Slava Bourgeois MD General Surgery [facility] Consent for Procedure/Surger yon 09-12-2020 Consent for Procedure/Surgery [id number] 0CD:127 [facility] Ambulatory Clinical Summaryo n 09-10-2020 Ambulatory Clinical Summary {[id number] [facility] General Surgery Office/Clini c Noteon 09-10-2020 General Surgery Office/Clinic Note HPI Staff New pt., ref by Dr. Hall for cholelithiasis . Pt was in [place] [facility] in 06/2020 ct abd/pelvis , u/s [...] Use:., 09/10/2020 Family History HTN: Father. Normal [facility] Comment on above: Result Comment: Elec tronically Signed By: NEIL BLAKE, Slava Collazo\Date and Time Signed: 09/10/20 16:56 EDT Provider Letteron 09-10-2020 Provider Letter September 10, 2020 GEORGE CASTILLO [address] [place] [id number] GEORGE CASTILLO 1960 To Whom It May Concern, Please excuse above patient from work. Date of Illness/appointment From: 09/10/20 May Return to Work On: pt was in our office for an appointment today Sincerely, Dr Slava Bourgeois [facility] Physician Referralon 021 Physician Referral [id number] 0CD:127 [facility] Physician Referral [id number] CD:127 [facility] Vital Signs Date Time Vital Sign Value Performing Clinician Facility 06-27-2024 08:32-0400 Body height 185.42 cm [facility] 06-27-2024 08:32-0400 Body mass index (BMI) [Ratio] 32.7 kg/m2 [facility] 06-27-2024 08:32-0400 Body weight 112.49 kg [facility] 06-27-2024 08:32-0400 Diastolic blood pressure 76 mm[Hg] [facility] 06-27-2024 08:32-0400 Heart rate 62 /min [facility] 06-27-2024 08:32-0400 Respiratory rate 18 /min [facility] 06-27-2024 08:32-0400 SaO2% (BldA) [Mass fraction] 98 % [facility] 06-27-2024 08:32-0400 Systolic blood pressure 132 mm[Hg] [facility] 05-09-2024 15:38-0400 Body height 185.42 cm Yvon Hall DO Work Phone: [facility] 05-09-2024 15:38-0400 Body mass index (BMI) [Ratio] 33.1 kg/m2 Yvon Hall DO Work Phone: [facility] 05-09-2024 15:38-0400 Body weight 113.85 kg Yvon Ball DO Work Phone: [facility] 05-09-2024 15:38-0400 Diastolic blood pressure 75 mm[Hg] Yvon Ball DO Work Phone: [facility] 05-09-2024 15:38-0400 Heart rate 87 /min Yvon Ball DO Work Phone: [facility] 05-09-2024 15:38-0400 Respiratory rate 12 /min Yvon Ball DO Work Phone: [facility] 05-09-2024 15:38-0400 Systolic blood pressure 132 mm[Hg] Yvon Ball DO Work Phone: [facility] 03-15-2024 14:01-0500 Diastolic blood pressure 81 mm[Hg] Yvon Ball DO Work Phone: [facility] 03-15-2024 14:01-0500 Heart rate 87 /min Yvon Ball DO Work Phone: [facility] 03-15-2024 14:01-0500 Respiratory rate 18 /min Yvon Ball DO Work Phone: [facility] 03-15-2024 14:01-0500 SaO2% (BldA) [Mass fraction] 97 % Yvon Ball DO Work Phone: [facility] 03-15-2024 14:01-0500 Systolic blood pressure 112 mm[Hg] Yvon Ball DO Work Phone: [facility] 03-15-2024 12:10-0500 Body height 185.42 cm Yvon Ball DO Work Phone: [facility] 03-15-2024 12:10-0500 Body weight 113.39 kg Yvon Ball DO Work Phone: [facility] 02-22-2024 10:16-0500 Body height 185.42 cm Yvon Ball DO Work Phone: [facility] 02-22-2024 10:16-0500 Body mass index (BMI) [Ratio] 34 kg/m2 Yvon Ball DO Work Phone: [facility] 02-22-2024 10:16-0500 Body weight 116.8 kg Yvon Ball DO Work Phone: [facility] 02-22-2024 10:16-0500 Diastolic blood pressure 75 mm[Hg] Yvon Ball DO Work Phone: [facility] 02-22-2024 10:16-0500 Heart rate 101 /min Yvon Ball DO Work Phone: [facility] 02-22-2024 10:16-0500 Respiratory rate 12 /min Yvon Ball DO Work Phone: [facility] 02-22-2024 10:16-0500 Systolic blood pressure 123 mm[Hg] Yvon Ball DO Work Phone: [facility] 12-31-2023 08:59-0500 Body height 185.42 cm Yvon Ball DO Work Phone: [facility] 12-31-2023 08:59-0500 Body mass index (BMI) [Ratio] 32.8 kg/m2 Yvon Ball DO Work Phone: [facility] 12-31-2023 08:59-0500 Body weight 112.94 kg Yvon Ball DO Work Phone: [facility] 12-31-2023 08:59-0500 Diastolic blood pressure 84 mm[Hg] Yvon Ball DO Work Phone: [facility] 12-31-2023 08:59-0500 Heart rate 102 /min Yvon Ball DO Work Phone: [facility] 12-31-2023 08:59-0500 SaO2% (BldA) [Mass fraction] 97 % Yvon Ball DO Work Phone: [facility] 12-31-2023 08:59-0500 Systolic blood pressure 132 mm[Hg] Yvon Ball DO Work Phone: [facility] 03-08-2023 13:00-0500 Body height 184.15 cm Leda Porsche Other [facility] Other 03-08-2023 13:00-0500 Body mass index (BMI) [Ratio] 33.04 kg/m2 Leda Porsche Other [facility] Other 03-08-2023 13:00-0500 Body weight 112.04 kg Leda Porsche Other [facility] Other 03-08-2023 13:00-0500 Diastolic blood pressure 72 mm[Hg] Leda Porsche Other [facility] Other 03-08-2023 13:00-0500 Respiratory rate 18 /min Leda Porsche Other [facility] Other 03-08-2023 13:00-0500 SaO2% (BldA) [Mass fraction] 97 % Leda Porsche Other [facility] Other 03-08-2023 13:00-0500 Systolic blood pressure 128 mm[Hg] Leda Porsche Other [facility] Other 12-25-2022 09:00-0500 Body height 184.15 cm Yvon Ball Other [facility] Other 12-25-2022 09:00-0500 Body mass index (BMI) [Ratio] 31.3 kg/m2 Yvon Ball Other [facility] Other 12-25-2022 09:00-0500 Body weight 106.14 kg Yvon Ball Other [facility] Other 12-25-2022 09:00-0500 Diastolic blood pressure 89 mm[Hg] Yvon Ball Other [facility] Other 12-25-2022 09:00-0500 Respiratory rate 12 /min Yvon Ball Other [facility] Other 12-25-2022 09:00-0500 Systolic blood pressure 127 mm[Hg] Yvon Ball Other [facility] Other 12-07-2022 14:30-0400 Body height 184.15 cm Yvon Ball Other [facility] Other 12-07-2022 14:30-0400 Body mass index (BMI) [Ratio] 31.3 kg/m2 Yvon Ball Other [facility] Other 12-07-2022 14:30-0400 Body weight 106.14 kg Yvon Ball Other [facility] Other 12-07-2022 14:30-0400 Diastolic blood pressure 80 mm[Hg] Yvon Ball Other [facility] Other 12-07-2022 14:30-0400 Respiratory rate 12 /min Yvon Ball Other [facility] Other 12-07-2022 14:30-0400 Systolic blood pressure 125 mm[Hg] Yvon Ball Other [facility] Other Encounters Encounter Date Encounter Type Care Provider Facility Start: 06-27-2024 End: 06-27-2024 ambulatory [facility] Work Phone: Start: 06-27-2024 End: 06-27-2024 Patient encounter procedure [facility] Physician [facility] Work Phone: Start: 05-09-2024 End: 05-09-2024 ambulatory Yvon Ball DO Work Phone: [facility] Work Phone: Start: 05-09-2024 End: 05-09-2024 Encounter for general adult medical examination without abnormal findings Yvon Ball DO Work Phone: [facility] Start: 05-09-2024 End: 05-09-2024 Patient encounter procedure Yvon Ball DO Work Phone: [facility] Physician [facility] Work Phone: Start: 05-08-2024 Non-patient / Non-visit Benjam in Ball DO Work Phone: [facility] Physician [facility] Work Phone: Start: 03-16-2024 Patient encounter status Yvon Ball DO Work Phone: [facility] Start: 03-15-2024 Non-patient / Non-visit Benjam in Ball DO Work Phone: [facility] Work Phone: Start: 03-15-2024 Non-patient / Non-visit Benjam in Ball DO Work Phone: [facility] Work Phone: Start: 03-15-2024 End: 03-15-2024 Admission to same day surgery center Yvon Ball DO Work Phone: [facility] Work Phone: Start: 03-15-2024 End: 03-15-2024 ambulatory Yvon Ball DO Work Phone: [facility] Work Phone: Start: 02-22-2024 End: 02-22-2024 Patient encounter procedure Yvon Ball DO Work Phone: [facility] Physician [facility] Work Phone: Start: 12-31-2023 End: 12-31-2023 ambulatory Yvno Hall DO Work Phone: [facility] Work Phone: Start: 12-31-2023 End: 12-31-2023 Patient encounter procedure Yvon Hall DO Work Phone: [facility] Work Phone: Start: 03-10-2023 End: 03-10-2023 ambulatory Yvon Hall Other [facility] Other Start: 03-10-2023 Telephone encounter Yvon Hall PRATIK Irene Regulatory Affairs Director Start: 03-08-2023 End: 03-08-2023 ambulatory Leda Morrell Other [facility] Other Start: 03-08-2023 Office outpatient ne w 45 minutes Leda Morrell [facility] Start: 02-12-2023 End: 02-12-2023 ambulatory Yvon Hall Other [facility] Other Start: 02-12-2023 Telephone encounter Yvon Hall [facility] Start: 01-13-2023 End: 01-13-2023 ambulatory Yvon Hall Other [facility] Other Start: 01-13-2023 Telephone encounter Yvon Hall [facility] Start: 01-01-2023 End: 01-01-2023 ambulatory Yvon Hall Other [facility] Other Start: 01-01-2023 Office outpatient vi sit 15 minutes Yvon Ball [facility] Start: 12-25-2022 End: 12-25-2022 ambulatory Yvon Hall Other [facility] Other Start: 12-25-2022 Office outpatient vi sit 25 minutes Yvon Ball [facility] Start: 12-23-2022 End: 12-23-2022 ambulatory Yvon Ball Other [facility] Other Start: 12-23-2022 Telephone encounter Yvon Rafael [facility] Start: 12-18-2022 End: 12-18-2022 ambulatory Yvon Hall Other [facility] Other Start: 12-18-2022 Telephone encounter Yvon Hall [facility] Start: 12-17-2022 End: 12-17-2022 ambulatory Yvon Rafael Other [facility] Other Start: 12-17-2022 Telephone encounter Yvon Hall [facility] Start: 12-07-2022 End: 12-07-2022 ambulatory Yvon Hall Other [facility] Other Start: 12-07-2022 Encounter for genera l adult medical examination without abnormal findings Yvon Rafael [facility] Start: 12-07-2022 Periodic preventive med est patient 40-64yrs Yvon Hall [facility] Start: 11-13-2022 End: 11-13-2022 ambulatory Yvon Hall Other [facility] Other Start: 11-13-2022 Encounter for genera l adult medical examination without abnormal findings Yvon Hall [facility] Start: 11-13-2022 Telephone encounter Yvon Hall [facility] Start: 09-18-2022 End: 09-18-2022 ambulatory Yvon Hall Other [facility] Other Start: 09-18-2022 Nursing evaluation o f patient and report Yvon Hall [facility] Start: 01-27-2022 Adult health examination Yvon Hall Other [facility] Other Start: 01-26-2022 End: 01-27-[address] YVON HALL Facility:[facility] Start: 01-06-2022 End: 01-23-[address] YVON HALL Facility:[facility] Start: 12-29-2021 End: 12-30-[address] YVON HALL Facility:[facility] Start: 12-03-2021 Encounter for genera l adult medical examination without abnormal findings DR YVON AHLL [facility] Start: 12-01-2021 End: 12-02-[address] YVON HALL Facility:[facility] Start: 12-01-2021 End: 12-02-2021 Encounter for general adult medical examination without abnormal findings DR YVON HALL Facility:[facility] Procedures Date Procedure Procedure Detail Performing Clinician Start: 03-15-2024 Colonoscopy Yvon wesley DO Work Phone: Start: 12-01-[address] ELI HALL Comment on above: Performed By: #### P [facility] #### [facility] [address] [place] [address] Dr. Derrek Miramontes Start: 10-14-2018 Screening for malign ant neoplasm of colon Yvon Hall Other Start: 10-11-2018 Diabetes mellitus screening Yvon Hall Other Start: 10-10-2018 General examination of patient Yvon Hall Other Start: 07-25-2014 Screening for malign ant neoplasm of prostate Yvon Hall Other Plan of Treatment Date Care Activity Detail Author Start: 05-09-2024 Patient referral [facility] Work Phone: Start: 03-15-2024 [facility] Patient Education Hemorrhoids Co bob polyps Know your Meds [facility] Work Phone: Patient referral [facility] Work Phone: [facility] Payers Date Payer Category Payer Self-pay 2023 Unknown [id number] 1960 Unknown [id number] 2.16.84 [id number] 1960 Unknown [id number] 2.16.84 [id number] 1960 Unknown [id number] 2.16.84 [id number] 1960 Unknown [id number] 2.16.84 [id number] 1957 Unknown [id number] 1957 Unknown [id number] Unknown [id number] Unknown [id number] 2.16.8 [id number] Unknown [id number] 2.16.8 [id number] Social History Date Type Detail Facility Sex Assigned At [facility] Other Start: 07-16-2023 End: 05-09-2024 Tobacco smoking status NHIS Never smoked tobacco (finding) [facility] Start: 01-01-2024 Sex Patient sex un known (finding) [facility] Start: 1960 Sex Assigned At Male F [facility] Start: 03-15-2024 End: 06-27-2024 Sex Male (finding) [facility] Goals Date Patient Goal Desired Activity /State Clinical Notes 12-30-2021 to 05-09-2024 Note Date & Type Note Facility 05-09-2024 Evaluation note Diagnosis Onset Date Resolution Hypercholesterolemia acute 2024 3:18pm Obesity acute May 09 3:18pm ALIZE (obstructive sleep apnea) acute May 09, 2024 3:18pm Persistent atrial fibrillation acute May 09, 2024 3:18pm Wellness examination acute 2024 3:18pm ALIZE (obstructive sleep apnea) acute June 27, 2024 8:34am Persistent atrial fibrillation acute June 27, 2024 8:34am [facility] Work Phone: 1(929) 338-629003-25-2025 Hospital Discharge instructionsAmbulatory Orders* Referral to ENT Time Frame: 05/09/24, Location: None Selected [facility] Work Phone: 1(840) 297-248901-29-[address] [address] Colonoscopy Procedure Report Signed Patient: George Castillo MR#: [id number] : 1960 Acct:[id number] Age/Sex: 64 / M Adm Date: 5 Loc: Room: Type: [facility] Attending Dr: Sean Garcia MD Copies to: Yvon Hall,DO Sean Garcia MD~ Colonoscopy Date/Provider 03/15/2024 Sean Garcia MD Colonoscopy Findings: Procedure: Colonoscopy with polypectomy Indication: 64-year-old man with history of colonic polyps and family history ofcolon cancer (2 grandparents) here for surveillance colonoscopy Pre-operative diagnosis: history of colonic polyps and family history of colon cancer (2 grandparents) Post-operative diagnosis: Colonic polyps, internal hemorrhoids. Sedation: propofol per anesthesia dept O2 oximetry, hemodynamic monitoring was performed pre, during, and post procedure. Patient was identified, H&P completed, patient was given full explanation of the procedure as well as associatedrisks and written consent wasobtained prior to procedure. Patient expressed complete understanding of the procedure as well as alternatives to the procedure and to anesthesia and agreed to proceed with the procedure as indicated. Patient was immediately reassessed prior to IV sedation. Under IV sedation, patient was placed in the left lateral decubitus position. Digital rectal exam was performed and normal. Colonoscope was inserted and passed proximally to the cecum, which was identified by the ileocecal valve, appendiceal orifice and cecal floor. Colonoscope was slowly withdrawnwith the findings as below. Jenks bowel prep score was good. Findings: Terminal ileum: Normal Cecum: Normal. Ascending colon: A 2 mm polyp removed using cold forceps Hepatic flexure: Normal. Transverse colon: A 2 mm polyp removed using cold forceps Splenic flexure: Normal. Descending colon: Normal. Sigmoid colon: Normal. Rectum: Normal. Retroflexed views: Rectum did show internal hemorrhoids. Biopsy taken: No Complications: None EBL: None Recommendations: -Repeat colonoscopy in 5 years -Follow up pathology Following a period of recovery, patient was seen and given full explanation of the procedure. Patient tolerated the procedure well and will be discharged in satisfactory, stable condition. Sean Garcia M.D. Documented By: Sean Garcia MD 03/15/24 1323 Signed By: 03/15/24 1324 [facility]01-29-2025 [place] [id number] Gastroenterology H&P Signed Patient: George Castillo MR#: [id number] : 1960 Acct:[id number] Age/Sex: 64 / M Adm Date: 5 Loc: Room: Type: [facility] Attending Dr: Sean Garcia MD Copies to: Yvon Hall,DO Sean Garcia MD~ Date of Service: 03/15/2024 HISTORY & PHYSICAL: Patient's history with special attention to the cardiovascular, pulmonary systems and the current problem was reviewed with the patient immediately prior to the procedure. Present medications and doses reviewed in the EMR. Allergies and pertinent laboratory tests were also re viewedat this time in the EMR. The physical [...] Sean Garcia MD 03/15/24 1308 Signed By: 03/15/24 1323 [facility] [facility]01[facility]07[facility]25 Evaluation note* Diagnosis Onset Date Resolution Status Admit Date Acute bronchitis due to othe r specified organisms acute February 22, 2024 10:07am Persistent atrial fibrillation acute February 22, 2024 10:07am Hypercholesterolemia acute 2024 3:18pm Obesity acute May 09 3:18pm ALIZE (obstructive sleep apnea) acute May 09, 2024 3:18pm Persistent atrial fibrillation acute May 09, 2024 3:18pm Wellness examination acute 2024 3:18pm [facility] Work Phone: 1(939) 383-914511-15-2024 Evaluation note* Diagnosis Onset Date Resolution Status Admit Date ALIZE (obstructive sleep apnea) acute December 31, 2023 9:04am Persistent atrial fibrillation acute December 31, 2023 9:04am Hyperlipidemia deleted December 162023 9:04am [facility] Work Phone: 1(812) 978-480011-15-2024 Evaluation note* Diagnosis Onset Date Resolution Status Admit Date ALIZE (obstructive sleep apnea) acute December 31, 2023 9:04am Persistent atrial fibrillation acute December 31, 2023 9:04am Hyperlipidemia deleted December 162023 9:04am Acute bronchitis due to othe r specified organisms acute February 22, 2024 10:07am Persistent atrial fibrillation acute February 22, 2024 10:07am [facility] Work Phone: 1(374) 156-922301-22-2024 Evaluation note* Encounter Date Diagnosis Assessment Notes [...] required. - Follow up in 4 months. [facility] Other 12-29-2023 Evaluation note* Encounter Date Diagnosis Assessment Notes Treatment Notes Treatment Clinical Notes Jan, Persistent atrial fibrillation (ICD-10 - I48.19) ECHO: LVEF 60 to 65%, RV normal, LVH, ELVIRA, mild AA dilatation 4.0cm - 12/2022 [facility] Other 11-29-2023 Evaluation note* Encounter Date Diagnosis Assessment Notes Treatment Notes Treatment Clinical Notes Dec, ALIZE (obstructive sleep apnea) (ICD-10 - G47.33) [facility] Other 11-17-2023 Evaluation note* Encounter Date Diagnosis [...] LVEF 60 to 65%, RV normal, LVH, ELVRIA, mild AA dilatation 4.0cm - 12/2022 This patient is in NSR or rate controlled. This patient is anticoagulated to prevent thromboembolic events. 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 [facility] Other 11-10-2023 Evaluation note* Encounter Date Diagnosis [...] Cardiology for further evaluation and treatment. Discussed rastafari of NSR. Discussed briefly chronotropic incompetence Dec, [...] [BMI ] 31.0-31.9, adult (ICD-10 - Z68.31) [facility] Other 11-10-2023 Evaluation note* Encounter Date Diagnosis [...] Cardiology for further evaluation and treatment. Discussed rastafari of NSR. Dec, Pure hypercholestero lemia (ICD-10 [...] would decrease future treatment to restore NSR. 10 Dec, 2022 Other obesity due to excess calories (ICD-10 - E66.09) This patient has been instructed on a low-fat, high-fiber diet. They are instructed to reduce calories, portion sizes and snacks. It is recommended that they exercise for 30 minutes, 3-5 times weekly. Dec, Body mass index [BMI ] 31.0-31.9, adult (ICD-10 - Z68.31) [facility] Other 11-08-2023 Evaluation note* Encounter Date Diagnosis Assessment Notes Treatment Notes Treatment Clinical Notes Dec, Persistent atrial fibrillation (ICD-10 - I48.19) ECHO: LVEF 60 to 65%, RV normal, LVH, ELVIRA, mild AA dilatation 4.0cm - 12/2022 [facility] Other 11-02-2023 Evaluation note* Encounter Date Diagnosis Assessment Notes Treatment Notes Treatment Clinical Notes Dec, Persistent atrial fibrillation (ICD-10 - I48.19) [facility] Other 10-23-2023 Evaluation note* Encounter Date Diagnosis [...] (ICD-10 - Z12.5) Yearly EUSEBIO and PSA [facility] Other 09-29-2023 Evaluation note* Encounter Date Diagnosis Assessment Notes Treatment Notes Treatment Clinical Notes Oct, Wellness examination (ICD-10 - Z00.00) [facility] Other 08-04-2023 Evaluation note* Encounter Date Diagnosis Assessment Notes Treatment Notes Treatment Clinical Notes Sep, Seasonal allergic rhinitis, unspecified trigger (ICD-10 - J30.2) [facility] Other 11-15-2022 NotePROCEDURE: XR HIP RT 2 3V WO PELVIS COMPARISON: None. HISTORY: Contusion of right hip region FINDINGS: BONES:No acute fracture or dislocation. Minimal degenerative change with marginal osteophyte formation along the superior acetabulum SOFT TISSUES:Negative. No visible soft tissue swelling. EFFUSION:None visible. OTHER: Negative. IMPRESSION: Minimal degenerative change Electronically authenticated by: DEMETRIO BENAVIDEZ Date: 2021-12-30 07:55[facility] noteNo InformationNortCl[facility] [place] Other History and physical note Author Sean Garcia [facility] Note Date/Time March 15, 2024 1 :23pm [facility] [address] [place] [address] Gastroenterology H&P Signed Patient: George Castillo MR#: [id number] : 1960 Acct:[id number] Age/Sex: 64 / M Adm Date: 5 Loc: Room: Type: [facility] Attending Dr: Sean Garcia MD Copies to: Yvon Hall,DO Sean Garcia MD~ Date of Service: 03/15/2024 HISTORY & [...] <Electronically signed by Sean Garcia MD> 03/15/24 1323 [facility] Work Phone: History general Narrative - Reported* Type Description Date Surgical History Problem Title : CHOL ECYSTECTOMY, LAPAROSCOPIC, USING MULTIPLE PORTS (03224), Problem Status : Active, Surgical History Problem Title : COLO NOSCOPY (75338), Problem Comment : Tubular Adenoma, Problem Status [...] : Colonoscopy 2012, Problem Status : Resolved, [facility] Other [facility] general Narrative - Reported* Type Description Date [...] History Tubular Adenoma Hospitalization History see surgical [facility] Other [facility] general Narrative - Reported* Type Description Date [...] Tubular Adenoma Hospitalization History see surgical hx [facility] Other [facility] general Narrative - Reported* Type Description Date [...] Tubular Adenoma/colon polyp Hospitalization History see surgical [facility] Other Reason for referral (narrative)* Reason Referral for new ons et atrial fibrillation Diagnosis 1 Persistent atrial fi brillation (I48.19) Referral Organization [facility] William roland Referring Provider First Name Yvon Referring Provider Last Name Rafael Referring Provider Specialty Internal Nv dicine Referred Organization [facility] Referred Provider Boy Morgan Referred Address [address] [place], [place],[address] Referred Provider Specialty Cardiology Referral Priority Routine [...] and should be included in this referral [place] [facility] Other Summary Purpose Family History Relationship Condition Age at Onset Recorded Date/T regina father Hypertension Unknown Heart disease Unknown grandparent Malignant neoplasm of colon Unknown mother Parkinson's disease Unknown brother Hypertension Unknown Advance Directives Advance Directive Response Recorded Date/ Time Advance Directives No November 24, 2018 2:34pm Advance Directive Response Recorded Date/ Time Advance Directives No November 24, 2018 3:34pm Chief Complaint and Reason for Visit Chief [...] 10:07am Persistent atrial fibrillation February 212024 10:07am Chief Complaint Admit Date cough for couple weeks February 22, 2024 10:07am HX OF COLON POLYPS/ FAM HX OF COLON CANC ER March 15, 2024 11:56am HX OF COLON POLYPS/ FAM HX OF COLON CANC ER March 15, 2024 1:08pm Amb Documentation March 15, 2024 2 :58pm Wellness May 09, 2024 3:1 8pm Reason for Visit Admit Date Acute bronchitis due to other specified organisms February 22, 2024 10:07am Persistent atrial fibrillation February 212024 10:07am Hypercholesterolemia May 09, 2024 3: 18pm Obesity May 09, 2024 3:1 8pm ALIZE (obstructive sleep apnea) April 3:18pm Persistent atrial fibrillation April 3:18pm Wellness examination May 09, 2024 3: 18pm Chief Complaint Admit Date Wellness May 09, 2024 3:1 8pm 6 months June 27, 2024 8:34a m Reason for Visit Admit Date Hypercholesterolemia May 09, 2024 3: 18pm Obesity May 09, 2024 3:1 8pm ALIZE (obstructive sleep apnea) April 3:18pm Persistent atrial fibrillation April 3:18pm Wellness examination May 09, 2024 3: 18pm ALIZE (obstructive sleep apnea) June 27, 2024 8:34am Persistent atrial fibrillation June 27, 2024 8:34am Additional Source Comments (unrecognized sect ion and content) No Status Records FoundNo Status Records FoundNo Status Records FoundNo Status Records Found INFORMATION SOURCE (unrecogn ized section and content) DATE CREATED AUTHOR 11/02/2020 [facility] [employer] [facility] DATE CREATED AUTHOR AUTHOR'S ORGANIZ ATION 02/06/2022 [facility] DATE CREATED AUTHOR AUTHOR'S ORGANIZ ATION 03/11/2022 [facility] dical Specialist DATE CREATED AUTHOR AUTHOR'S ORGANIZ ATION 03/25/2024 [facility] REASON FOR VISIT (unrecogniz ed section and content) [facility] Informationadditional instructionsNo Informationdiscuss test [id number] COVID +No Informationdiscuss test resultsERRORREFERRED BY DR. HALL FOR PERSISTENT ATRIAL FIBRILLATIONCARDIO CONSULT NOTE Care Teams (unrecognized sec tion and content) Team Status: Active Member Role Status Dates Leda Morrell MD Social Work Lecturer Active Yvon Hall DO Primary Care Provider Active Team Status: Inactive Member Role Status Dates Yvon Hall DO Primary Care Provider Active Start: December 31, 2023 End: December 31, 2023 Leda Morrell MD Attending Provider Active Sta rt: December 31, 2023 End: December 31, 2023 Team Status: Inactive Member Role Status Elizabeth Hall DO Primary Care Provide r, Attending [...] Other Provider Active Start: March 15, 2024 Team Status: Active Member Role Status Dates Yvon Hall DO Primary Care Provider Active Start: March 15, 2024 Jaja Castillo CMA Attending Provider Active St art: March 15, 2024 Team Status: Active Member Role Status Dates Yvon Hall DO Primary Care Provide r, Attending Provider Active Start: May 08, 2024 Team Status: Inactive Member Role Status Dates Yvon Hall , DO Primary Care Provide r, Attending Provider Active Start: May 09, 2024 End: May 09, 2024 Team Status: Inactive Member Role Status Dates Yvon Hall DO Primary Care Provider Active Start: June 27, 2024 End: June 27, 2024 Leda Morerll MD Attending Provider Active Sta rt: June 27, 2024 End: June 27, 2024 Goals (unrecognized section and content) Goals [...] BE BASED ON THE PRIMARY CLINICAL RECORDS. [employer] provides no warranty or guarantee of the accuracy or completeness of information in this document.
[2024-07-19 07:29] LABS: Alanine Aminotransferase 32 U/L (16-63); Aspartate Amino Transferase 22 U/L (15-37); Chol HDL Ratio 3.2; Cholesterol 104 mg/dL (<=200); HDL Cholesterol 33 mg/dL (40-60); Triglycerides 64 mg/dL (<=150); VLDL CHOLESTEROL 12.8 mg/dL
== END 2024-07-19 06:48 | disposition home or self-care (01) ==
LOC: LAB 06:48
PROVIDERS: PCP Internal Medicine; Visit Provider Internal Medicine
DX: E78.00 Pure hypercholesterolemia, unspecified (principal); Z79.899 Other long term (current) drug therapy
CPT/HCPCS: 36415; 80061; 84450; 84460

== ENCOUNTER 2024-11-14 06:55 | Outpatient (OUT) | payer OTHER, SELFPAY ==
--- OUTSIDE RECORDS SUMMARY | 2024-10-23 15:00 | XMS_ITS ---
Author Name Auto Generated Organization OHIP Care Team Providers Care Events Traffic Controller Name Role Phone GÓMEZ VANEGAS Attending Unavailable TAYLOR ESTES Attending Unavailable YVON THOMPSON Referring Unavailable LORAINE SAUL Attending Unavailable Asaad, Imad Admitting Unavailable Yvon Thompson Primary Care Unavailable Asajasbir, Sean Attending Unavailable Leda Morrell Attending Unavailable Leda Morrell Admitting Unavailable Rafael, Yvon Primary Care Unavailable PROBLEMS DATE TYPE CONDITION / CODE ATTENDING STATUS MILAN Mariza 03/15/2024 Unknown Encounter for sc reening for malignant neoplasm of colon / Z12.11(ICD-10) Asaad, Imad Active [facility] 12/31/2023 Unknown Other persistent atrial fibrillation / I48.19(ICD-10) Leda Morrell Active [facility] PROCEDURES No Procedure Records Found RESULTS L Observed: 03/15/2024 1:16 PM Status: F Source: [facility] ----- ------- Specimen: [id number] Received: 03/15/24 Status: KAYLEN Red Num: [id number] Spec Type: Surgical Subm Dr: Sean Garcia MD Tissues: A Colon Biopsy (COL POLYP ASC') B Colon Biopsy (TRANSV COL NIMA) Procedures: HE/4, Gross/Micro L4/2 ----- ------- Age/ Patient Sex Location Account Attending Physician ----- ------- George Castillo /[facility] [id number] Sean Garcia MD ----- ------- SPEC NUM: [id number] RECD: 03/15/24 STATUS: KAYLEN RED NUM: [id number] NADINE: 03/15/[address] [facility] [address]: Sean Garcia MD ENTERED: 03/15/[address]: SPEC TYPE: Surgical DEPT: S ENTERED BY: [id number] RECV BY: [id number] ORDERED: HE/4, Gross/Micro L4/2 ORDERED: HE/4, Gross/Micro [...] a single cassette. (1, ns, [id number]) Part B is received in formalin labeled with the patients name, date of , and transverse polyp is a brooke-amaral, focally erythematous, friable, 0.3 cm in greatest dimension polypoid fragment. The specimen is entirely submitted in a single cassette. (1, ns, [id number] B) ----- ------- Specimen: [id number] Received: 03/15/24 Status: KAYLEN Russ Num: [id number] Spec Type: Surgical Subm Dr: Sean Garcia MD Tissues: A Colon Biopsy (COL POLYP ASC') B Colon Biopsy (TRANSV COL NIMA) Procedures: HE/Vonda, Gross/Micro L4/2 ----- ------- Patient: George Castillo [id number] (Continued) ----- ------- Specimen: [id number] Received: 03/15/24 (Continued) Signed (signature on file) Teofilo Lam MD 03/16/24 1034 ----- ------- Specimen: Received: 03/15/24 Status: KAYLEN Red Num: [id number] Spec Type: Surgical Subm Dr: Sean Garcia MD Tissues: A Colon Biopsy (COL POLYP ASC') B Colon Biopsy (TRANSV COL NIMA) Procedures: SHWETA, Gross/Micro L4/2 ----- ------- Patient: George Castillo [id number] (Continued) ----- ------- Specimen: Received: 03/15/24 (Continued) Microscopic Description A B: Microscopic examination is performed. CPT Codes 07802 x2 ----- ------- ----- ------- Specimen: [id number] Received: 03/15/24 Status: KAYLEN Red Num: [id number] Spec Type: Surgical Subm Dr: Sean Garcia MD Tissues: A Colon Biopsy (COL POLYP ASC') B Colon Biopsy (TRANSV COL NIMA) Procedures: Phyllis ROCK/Karrie L4/2 ----- ------- Patient: George Castillo [id number] (Continued) ----- ------- Signed (signature on file) Teofilo Lam MD 03/16/24 1034 FPG ECG *CARDIOLOGY ONLY* Observed: 12/16 9:11 AM Status: COMPLETED Source: [facility] [address] [place] [address] Electrocardiograph Report Signed Patient: George Castillo MR#: [id number] : 1960 Acct:[id number] Age/Sex: 63 / M ADM Date: 12/31/23 [facility]: Type[facility] Attending Dr: Leda Morrell MD Ordering [...] previous ECGs available Confirmed by Boy Morgan ([id number]) on 01/03/2024 11:11:21 AM Referred By: Electronically Signed By: Boy Morgan Transcribed By: MUS Signed By Boy Morgan MD 01/03/24 1111 ALLERGIES DATE TYPE / CODE NAME / CODE REACTION SEVERITY SOURCE 03/15/2024 Drug Allergy/[id number] (SNOMED CT) No Known Allergies/[id number] 88(RXNORM) Unknown [facility] ENCOUNTERS ADMIT/DISCHARGE ACCOUNT NUMBER ADMITTING ENCOUNTER CLASS LOCATION SOURCE 10/23/2024/10/24/19 [id number] Ambulatory Building:[facility] EPIC 08/15/2024/08/16/19 [id number] Ambulatory Building:[facility] EPIC 08/11/2024/08/12/19 [id number] Ambulatory Building:[facility] EPIC 03/15/2024/03/15/19 [id number] Asaad, Imad [facility] 12/31/2023/12/31/19 24 [id number] Leda Morrell [facility] PAYERS ENCOUNTER GUARANTOR PAYER SUBSCRIBER SOURCE 10/23/2024 GEORGE CASTILLODOB: [id number] [address] [place] [address]Tel: (HP) Primary Insurance:MEDICAL MUTUALPolicy Number: [id number] Date:2023-02-15 GEORGE Chan HAYDOB: [id number] [address] [place], [place] [phone] [facility] EPIC 10/23/2024 Secondary Insurance:ROYAL BENEFITSPolicy Number: [id number] Date:2023-02-15 GEORGE Chan HAYDOB: [id number] [address] [place], [place] [address] [facility] EPIC 08/15/2024 GEORGE CASTILLODOB: [address] [place], [place] [address]Tel: (HP) Primary Insurance:MEDICAL MUTUALPolicy Number: [id number] Date:2023-02-15 GEORGE CASTILLODOB: [id number] [place], [place] [address] [facility] EPIC 08/15/2024 Secondary Insurance:ROYAL BENEFITSPolicy Number: [id number] Date:2023-02-15 GEORGE Chan HAYDOB: [id number] [phone] [facility] EPIC 08/11/2024 GEORGE Chan HAYDOB: [address] [place], [place] [address]Tel: (HP) Primary Insurance:MEDICAL MUTUALPolicy Number: [id number] Date:2023-02-15 GEORGE Chan HAYDOB: [id number] [place], [place] [address] [facility] EPIC 08/11/2024 Secondary Insurance:ROYAL BENEFITSPolicy Number: [id number] Date:2023-02-15 GEORGE CASTILLODOB: [id number] [place] [phone] [facility] EPIC 03/15/2024 George Castillo[address] [place] [address]Rhz: () Primary Insurance:MMOPolicy Number: [id number] Date:1309-56-72[id number] [place] [address]GU: George CastilloDOB: [id number] [address] [place] [phone]: () [facility] 03/15/2024 Secondary Insurance:Broad Top BenefitsPolicy Number: [id number] Date:8606-94-43OG [address] [place] [address]GF: George CastilloDOB: [id number] [address] [address]Leh: () [facility] 03/15/2024 Tertiary Insurance:Self PayPolicy Number: Effective Date:2024-03-13 [facility] 12/31/2023 George Castillo[address] [place] [address]Ide: () Primary Insurance:MMOPolicy Number: [id number] Date:2731-18-26YI [id number] [place] [address]QQ: George CastilloDOB: [id number] [address] [address]Ejf: () [facility] 12/31/2023 Secondary Insurance:Broad Top BenefitsPolicy Number: [id number] Date:8486-14-96UT [address] [place] [address]AN: George Chan Commerce CityDOB: [id number] [place] [address]Zrd: () [facility] 12/31/2023 Tertiary Insurance:Self PayPolicy Number: Effective Date:2023-12-31 [facility]
--- OUTSIDE RECORDS SUMMARY | 2024-11-14 06:58 | XMS_ITS | Encounter Summary ---
Author Organization [facility] Address [address] [place] [place] [address] Care Team Providers Care Windows Vmware Administrator Name Role Phone vYon Hall DO Primary Care Provider [phone] Encounter Details Date Type Department Care Team (Late Contact Info) Description 10/26/2024 Abstract [facility] [address] [facility] [phone] Sosa Jorge, [facility] [address] [facility] [place] [address] Social History Tobacco Use Types Packs/Day Years Used Date Smoking Tobacco: Never Smokeless Tobacco: Never Alcohol Use Standard Drinks/Week Comments Not Currently 0 (1 standard drink = 0.6 oz pur e alcohol) Sex and Gender Information Value Date Recorded Sex Assigned at Not on file Legal Sex Male 7:09 PM EDT Gender Identity Not on file Sexual Orientation Not on file documented as of this encounter Plan of Treatment Upcoming Encounters Date Type Department Care Team (Late st Contact Info) Description 08/21/2025 1:00 PM EDT Office Visit [facility] [address] [place] [address] Suzan Almaguer, YANETH [address] [place] [address] 08/21/2025 1:30 PM EDT Office Visit [facility] [address] [place] [phone] Arnaldo Dumont, [address] [place] [address] documented as of this encounter Visit Diagnoses Not on filedocumented in this encounter Care Teams Windows Vmware Administrator Relationship Specialty Start Date End Date Yvon Hall DO [address] [place] [address] PCP - General Internal Medicine 08/07/24 documented as of this encounter
--- OUTSIDE RECORDS SUMMARY | 2024-11-14 06:58 | XMS_ITS | Clinical Summary ---
Author Organization [facility] Address [address] [place] [address] Care Team Providers Care Compliance Reviewer Name Role Phone Yvon Hall Primary Care Provider [phone] Allergies No known active allergies Medications rosuvastatin (Crestor) 10 MG tablet Take 10 mg by mouth Daily 07/27/2024 Active Active Problems No known active problems Resolved Problems Problem Noted Date Diagnosed Date Resolved Date Acute bronchitis due to othe r specified organisms 08/12/2024 08/12/2024 Cholelithiasis 08/12/2024 08/12/2024 Chronic cholecystitis with calculus 08/12/2024 08/12/2024 High risk medication use 08/12/2024 Hypercholesterolemia 08/12/2024 025 Nocturia associated with fabio ign prostatic hyperplasia 08/12/2024 08/12/2024 Obesity with body mass index 30 or greater 08/12/2024 08/12/2024 Obesity 08/12/2024 08/12/2024 ALIZE (obstructive sleep apnea) 08/12/2024 08/12/2024 Overview (08/12/2024): CPAP Palpitations 08/12/2024 08/12/2024 Persistent atrial fibrillation 08/12/2024 08/12/2024 Sciatica 08/12/2024 08/12/2024 Screening for colorectal cancer 08/12/2024 08/12/2024 Overview (08/12/2024): Problem List clean-up per request of Phys. 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 08/12/2024 08/12/2024 Encounters Date Type Department Care Team Description 10/26/2024 Abstract [facility] [address] [facility] [place] [address] Sosa Jorge CCC-A 10/23/2024 3:00 PM EDT Clinical Support [facility] [address] [facility] [place] [address] Sosa Jorge, CCC-A Sensorineural hearing loss, bilateral (Primary Dx) 10/23/2024 Bamboo flowsheet [facility] [address] [facility] [place] [address] Sosa Jorge CCC-A 08/15/2024 3:30 PM EDT Office Visit [facility] [address] [place] [id number] Arnaldo Dumont DO Sensorineural hearing loss (SNHL) of both ears (Primary Dx); Tinnitus, unspecified laterality 08/15/2024 Bamboo flowsheet [facility] [address] [place] [phone] Arnaldo Dumont DO 08/15/2024 Travel from Last 3 Months Social History Tobacco Use Types Packs/Day Years Used Date Smoking Tobacco: Never Smokeless Tobacco: Never Tobacco Cessation:Counseling Given: Not Answered Alcohol Use Standard Drinks/Week Comments Not Currently 0 (1 standard drink = 0.6 oz pur e alcohol) Sex and Gender Information Value Date Recorded Sex Assigned at Not on file Legal Sex Male 7:09 PM EDT Gender Identity Not on file Sexual Orientation Not on file Last Filed Vital Signs Vital Sign Reading Time Taken Comments Blood Pressure - - Pulse - - Temperature - - Respiratory Rate - - Oxygen Saturation - - Inhaled Oxygen Concentration - - Weight 109 kg (240 lb) 08/15/2024 3:10 PM EDT Height 185.4 cm (6' 1 ) 08/15/2024 3:10 PM EDT Body Mass Index 31.66 08/15/2024 3:10 PM EDT Plan of Treatment Upcoming Encounters Date Type Department Care Team (Late st Contact Info) Description 08/21/2025 1:00 PM EDT Office Visit [facility] [address] [place] [phone] Suzan Almaguer S, AUD [address] [place] [address] 08/21/2025 1:30 PM EDT Office Visit [facility] [address] [place] [phone] Arnaldo Dumont S, DO [address] [place] [address] Insurance [employer] Care Teams Compliance Reviewer Relationship Specialty Start Date End Date Yvon Hall DO [address] [place] [id number] PCP - General Internal Medicine 08/07/24
--- OUTSIDE RECORDS SUMMARY | 2024-11-14 06:58 | XMS_ITS | Clinical Summary ---
Author Organization [facility] Address [address], [address] [place] [address] Care Team Providers Care [employer] Attendant Name Role Phone Yvon Hall Primary Care Provider [phone] Allergies No known active allergies Medications No known medications Active Problems No known active problems Social History Tobacco Use Types Packs/Day Years Used Date Smoking Tobacco: Never Assessed Smokeless Tobacco: Never Sex and Gender Information Value Date Recorded Sex Assigned at Not on file Legal Sex Male 8:44 AM EDT Gender Identity Not on file Sexual Orientation Not on file Last Filed Vital Signs Vital Sign Reading Time Taken Comments Blood Pressure - - Pulse - - Temperature 36 C (96.8 F) 10/28/2018 3:40 PM EDT Respiratory Rate - - Oxygen Saturation - - Inhaled Oxygen Concentration - - Weight 108.4 kg (239 lb) 10/28/2018 3:40 PM EDT Height 185.4 cm (6' 1 ) 10/28/2018 3:40 PM EDT Body Mass Index 31.53 10/28/2018 3:40 PM EDT Plan of Treatment Not on file Insurance [employer] Care Teams [employer] Attendant Relationship Specialty Start Date End Date Yvon Hall DO PCP - General Internal Medicine 05/19/18
[2024-11-14 08:05] LABS: Alanine Aminotransferase 43 U/L (16-63); Albumin Globulin Ratio 1.2; Albumin Level 3.7 g/dL (3.4-5.0); Alkaline Phosphatase 95 U/L (46-116); Anion Gap 11.3; Aspartate Amino Transferase 26 U/L (15-37); Blood Urea Nitrogen 15.0 mg/dL (7.0-18.0); Calcium 9.0 mg/dL (8.5-10.1); Carbon Dioxide 31.2 mmol/L (21.0-32.0); Chloride 106 mmol/L (98-107); Estimated GFR (African America >60 (>=60 mL/min/1.73m^2); Estimated GFR (Non-African Ame >60 (>=60 mL/min/1.73m^2); Globulin 3.1 g/dL; Glucose 132 mg/dL (74-106); Magnesium 2.0 mg/dL (1.8-2.4); Potassium 4.5 mmol/L (3.5-5.1); Sodium 144 mmol/L (136-145); Thyroid Stimulating Hormone 1.814 uIU/mL (0.358-3.740); Total Protein 6.8 g/dL (6.4-8.2)
== END 2024-11-14 06:56 | disposition home or self-care (01) ==
LOC: LAB 06:57
PROVIDERS: PCP Internal Medicine; Visit Provider Internal Medicine
DX: E11.65 Type 2 diabetes mellitus with hyperglycemia (principal); G47.62 Sleep related leg cramps; R53.83 Other fatigue; E83.42 Hypomagnesemia; E78.00 Pure hypercholesterolemia, unspecified
CPT/HCPCS: 36415; 80053; 83036; 83735; 84443